=== PATIENT | female | born 1935 | race Caucasian/White ===

== ENCOUNTER 2016-09-07 13:06 | Inpatient (IN) ==
--- NOTE | 2016-09-07 14:47 | PROVIDER DOCUMENTATION ---
HPI-General Adult - General Chief Complaint: Altered Mental Status Stated Complaint: uti Time Seen by Provider: 09/07/16 14:31 Source: patient Allergies/Adverse Reactions: Patient Allergies Allergy/AdvReac Type Severity Reaction Status Date / Time No Known Allergies Allergy Verified 09/07/16 14:57 Home Medications: Home Medication List Medication Instructions Recorded Confirmed Last Taken Type Escitalopram [Lexapro] 10 mg PO DAILY 05/30/13 09/07/16 09/06/16 17:30 History Memantine HCl [Namenda Xr] 28 mg PO DAILY 04/08/15 09/07/16 09/07/16 10:00 History ATORVAstatin [Lipitor] 10 mg PO QHS 07/27/15 09/07/16 09/06/16 17:30 History Amiodarone [Cordarone] 200 mg PO DAILY 07/27/15 09/07/16 09/07/16 10:00 History Omeprazole [Prilosec] 20 mg PO DAILY@0700 09/14/15 09/07/16 09/06/16 17:30 History Amlodipine [Norvasc] 5 mg PO DAILY #0 tablet 09/20/15 09/07/16 09/07/16 10:00 Rx Donepezil [Aricept] 10 mg PO DAILY #0 tablet 09/20/15 09/07/16 09/07/16 10:00 Rx Metoprolol Succinate E.r. [Toprol 50 mg PO DAILY #0 09/20/15 09/07/16 09/06/16 17:30 Rx Xl] Insulin Glargine [Lantus] 46 unit SUBQ QHS 11/23/15 09/07/16 09/06/16 17:30 History Levothyroxine [Synthroid] 25 microgm PO DAILY 04/11/16 09/07/16 09/07/16 10:00 History Magnesium Oxide [Mag-Ox] 400 mg PO DAILY 04/11/16 09/07/16 04/11/16 History Sulfamethoxazole/Trimethoprim 1 mg PO BID 09/07/16 09/07/16 09/07/16 10:00 History [Sulfamethoxazole-Tmp Ds Tablet] - History of Present Illness -Gen Adult Nature of Presenting Problems: 81 y/o WF presenting with family for altered mental status. She does have a baseline dementia, but is typically alert and oriented to person, place and time. She was diagnosed with a uti yesterday (collection on Saturday at PCP) and was started on antibiotics, with one does yesterday and one dose today. They are unsure of the medication. Reports fevers. Patient is oriented to person, birthday and family. She cannot tell me where she is, or who the president is. Torie noticed the decline today. Has not been able to ambulate as easily today or answer their questions appropriately. They've witnessed her having chills. Review of Systems - Adult - REVIEW OF SYSTEMS - ADULT ROS:: limited per condition Constitutional: reports: see HPI, chills, fever, fatique Eyes: reports: no symptoms reported. denies: decreased vision, blurred vision, double vision, eye pain Ears, Nose, Mouth & Throat: reports: no symptoms reported. denies: ear pain, nose pain, throat pain Cardiovascular: reports: no symptoms reported. denies: chest pain, irregular heart rate, palpitations Respiratory: reports: no symptoms reported. denies: cough, shortness of breath , wheezing Gastrointestinal: reports: no symptoms reported. denies: abdominal pain, diarrhea, nausea, vomiting Genitourinary: reports: see HPI, dysuria. denies: discharge, frequency, flank pain, incontinence, urgency Musculoskeletal: reports: no symptoms reported. denies: bone pain, back pain, muscle aches Integumentary: reports: no symptoms reported. denies: rash Neurological: reports: no symptoms reported. denies: dizziness/vertigo, headache/migraines Psychiatric: reports: no symptoms reported Endocrine: reports: no symptoms reported Hematologic/Lymphatic: reports: no symptoms reported Allergic/Immunologic: reports: no symptoms reported All Other Systems: Reviewed and Negative Past History - Adult - PAST MEDICAL HISTORY-ADULT Review of Records: reports: Old Records Reviewed, Nursing Assessment Review, Medications Reviewed Major Childhood Illnesses: reports: denies history Cardiovascular: reports: HTN, hyperlipidemia Respiratory: reports: denies history Gastrointestinal: reports: GERD Obstetrical/Gynecological: reports: denies history Genitourinary: reports: denies history Musculoskeletal: reports: arthritis Neurological: reports: Alzheimer's, dementia Psychiatric: reports: denies history Endocrine/Immune: reports: Diabetes Other Conditions: reports: denies history - PRIOR SURGERIES/PROCEDURES Surgical/Procedure History: reports: reviewed, not pertinent - PRIOR HOSPITALIZATIONS Prior Hospitalizations: reports: for other non-related - IMMUNIZATION STATUS Childhood Immunizations: See Nurse Assessment Flu Vaccine: NUTD - FAMILY HISTORY Family History: reviewed, not pertinent Physical Exam-General - PHYSICAL EXAM-ADULT Initial Vital Signs Reviewed: Yes - CONSTITUTIONAL General Appearance: appears well, alert - EYES Eyes: PERRL/EOMI, pale conjunctivae - HEAD, EARS, NOSE, MOUTH & THROAT HENMT: normocephalic/atraumatic, moist mucous membranes - NECK Neck: non-tender, full range of motion, supple, normal inspection - RESPIRATORY Respiratory: chest non-tender, lungs clear, normal breath sounds, no pleuratic chest pain, no respiratory distress, no accessory muscle use. negative: respiratory distress, decreased breath sounds, accessory muscle use, crackles, rales, rhonchi, wheezing - CARDIOVASCULAR Cardiovascular: normal peripheral pulses, regular rate, rhythm. negative: tachycardia - GASTROINTESTINAL (ABDOMEN) Abdominal Exam: normal bowel sounds, non tender, soft, no organomegaly, abdominal bruit. negative: abnormal bowel sounds, distended, guarding, rigid, rebound, tenderness - MUSCULOSKELETAL Extremity: normal range of motion, other (left lower extremity in cast) - SKIN Integumentary: normal color, normal turgor, warm/dry - PSYCHIATRIC Psych/Mental Status: other (oriented x 1 to person) Progress - PLAN OF CARE/RESULTS Progress/Plan/Lab Results: Vital Signs - 8 hr 09/07/16 13:08 Temperature 99.7 F H Pulse Rate 76 Respiratory Rate 16 Blood Pressure 121/61 O2 Sat by Pulse Oximetry 96 Orders Category Date Time Status Cardiac Monitoring DIRECTED Care 09/07/16 14:35 Active Finger Stick Blood Sugar (ED) DIRECTED Care 09/07/16 14:35 Active Oxygen Therapy- ED Nursing DIRECTED Care 09/07/16 14:35 Active Saline Loc NOW Care 09/07/16 14:35 Active CHEST-PORTABLE [RAD] Stat Exams 09/07/16 14:35 Ordered ABG [RESP] Routine Lab 09/07/16 14:35 Ordered ALCOHOL BLOOD Stat Lab 09/07/16 14:35 Uncollected CBC WITH ELECTRONIC DIFF [HEME] Stat Lab 09/07/16 14:35 Uncollected CK PROFILE [SP CHEM] Stat Lab 09/07/16 14:35 Uncollected COMPREHENSIVE METABOLIC PANEL [CHEM] Stat Lab 09/07/16 14:35 Uncollected LACTATE, PLASMA [CHEM] Stat Lab 09/07/16 14:35 Uncollected PROTIME WITH INR [COAG] Stat Lab 09/07/16 14:35 Uncollected PTT [COAG] Stat Lab 09/07/16 14:35 Uncollected TROPONIN T Stat Lab 09/07/16 14:35 Uncollected URINALYSIS W/POSS RFLX CULT-1 [URINALYSIS] Stat Lab 09/07/16 14:35 Uncollected URINE DRUG SCREEN Stat Lab 09/07/16 14:35 Uncollected Pulse Oximetry Stat Oth 09/07/16 14:35 Active EKG [EKG] Stat Ther 09/07/16 14:35 Ordered Laboratory Tests 09/07/16 09/07/16 09/07/16 14:55 15:13 15:13 WBC 11.54 H RBC 4.74 Hgb 11.0 L Hct 35.1 L MCV 74.1 L MCH 23.2 L MCHC 31.3 L RDW Std Deviation 17.0 H Plt Count 269 MPV 10.4 Immature Gran % (Auto) 0.4 Neut % (Auto) 95.5 H Lymph % (Auto) 2.2 L [place] % (Auto) 1.8 Eos % (Auto) 0.0 Baso % (Auto) 0.1 Immature Gran # (Auto) 0.05 H Neut # (Auto) 11.02 H Lymph # (Auto) 0.25 L [place] # (Auto) 0.21 Eos # (Auto) 0.00 Baso # (Auto) 0.01 PT INR PTT (Actin FS) Specimen Type ARTERIAL Sample Site L RADIAL pH 7.48 H pCO2 31 L pO2 49 L* HCO3 24.9 Base Excess 0.2 Oxyhemoglobin 89.0 L* ABG O2 Sat (Calculated) 14.1 L ABG O2 Saturation 92.5 L ABG Carboxyhemoglobin 2.00 ABG Methemoglobin 1.8 H A-a O2 Difference 62.0 Total Hemoglobin 11.3 L Lactate 2.60 H Blood Gas Modality ROOM AIR FiO2 % 21.0 Sodium Potassium Chloride Carbon Dioxide Anion Gap BUN Creatinine Estimated GFR/1.73 m2 BUN/Creatinine Ratio Glucose Calculated Osmolality Calcium Total Bilirubin AST ALT Alkaline Phosphatase Creatine Kinase Troponin T Total Protein Albumin Globulin Albumin/Globulin Ratio Plasma Lactate Urine Source Urine Color Urine Turbidity Urine pH Ur Specific [place] Urine Protein Ur Glucose (Stick) Ur Ketones (Stick) Urine Blood Urine Nitrite Urine Bilirubin Urobilinogen Dipstick Urine Leukocytes Urine WBC (Auto) Urine RBC (Auto) U Epithel Cells (Auto) Urine Bacteria (Auto) Urine Opiates Screen Ur Oxycodone Screen Ur Methadone, Qual Ur Barbiturates Screen Ur Phencyclidine Scrn Ur Amphetamines Screen U Benzodiazepines Scrn Urine Cocaine Screen U Cannabinoids Screen Plasma/Serum Ethyl Alc 09/07/16 09/07/16 09/07/16 15:13 15:13 15:13 WBC RBC Hgb Hct MCV MCH MCHC RDW Std Deviation Plt Count MPV Immature Gran % (Auto) Neut % (Auto) Lymph % (Auto) [place] % (Auto) Eos % (Auto) Baso % (Auto) Immature Gran # (Auto) Neut # (Auto) Lymph # (Auto) [place] # (Auto) Eos # (Auto) Baso # (Auto) PT 10.6 INR 1.01 PTT (Actin FS) 26.0 Specimen Type Sample Site pH pCO2 pO2 HCO3 Base Excess Oxyhemoglobin ABG O2 Sat (Calculated) ABG O2 Saturation ABG Carboxyhemoglobin ABG Methemoglobin A-a O2 Difference Total Hemoglobin Lactate Blood Gas Modality FiO2 % Sodium 134 L Potassium 4.3 Chloride 93 L Carbon Dioxide 23 L Anion Gap 18 BUN 19 Creatinine 1.3 H Estimated GFR/1.73 m2 39 BUN/Creatinine Ratio 15 Glucose 244 H Calculated Osmolality 279 Calcium 9.2 Total Bilirubin 0.50 AST 186 H ALT 88 H Alkaline Phosphatase 221 H Creatine Kinase 28 Troponin T Total Protein 7.3 Albumin 3.5 Globulin 3.8 Albumin/Globulin Ratio 0.9 Plasma Lactate 3.3 H Urine Source Urine Color Urine Turbidity Urine pH Ur Specific [place] Urine Protein Ur Glucose (Stick) Ur Ketones (Stick) Urine Blood Urine Nitrite Urine Bilirubin Urobilinogen Dipstick Urine Leukocytes Urine WBC (Auto) Urine RBC (Auto) U Epithel Cells (Auto) Urine Bacteria (Auto) Urine Opiates Screen Ur Oxycodone Screen Ur Methadone, Qual Ur Barbiturates Screen Ur Phencyclidine Scrn Ur Amphetamines Screen U Benzodiazepines Scrn Urine Cocaine Screen U Cannabinoids Screen Plasma/Serum Ethyl Alc 09/07/16 09/07/16 09/07/16 15:13 15:58 15:58 WBC RBC Hgb Hct MCV MCH MCHC RDW Std Deviation Plt Count MPV Immature Gran % (Auto) Neut % (Auto) Lymph % (Auto) [place] % (Auto) Eos % (Auto) Baso % (Auto) Immature Gran # (Auto) Neut # (Auto) Lymph # (Auto) [place] # (Auto) Eos # (Auto) Baso # (Auto) PT INR PTT (Actin FS) Specimen Type Sample Site pH pCO2 pO2 HCO3 Base Excess Oxyhemoglobin ABG O2 Sat (Calculated) ABG O2 Saturation ABG Carboxyhemoglobin ABG Methemoglobin A-a O2 Difference Total Hemoglobin Lactate Blood Gas Modality FiO2 % Sodium Potassium Chloride Carbon Dioxide Anion Gap BUN Creatinine Estimated GFR/1.73 m2 BUN/Creatinine Ratio Glucose Calculated Osmolality Calcium Total Bilirubin AST ALT Alkaline Phosphatase Creatine Kinase Troponin T < 0.010 Total Protein Albumin Globulin Albumin/Globulin Ratio Plasma Lactate Urine Source CATH Urine Color ORANGE Urine Turbidity HAZY Urine pH 5.5 Ur Specific [place] 1.015 Urine Protein 70 A Ur Glucose (Stick) 150 A Ur Ketones (Stick) NEGATIVE Urine Blood LARGE A Urine Nitrite NEGATIVE Urine Bilirubin NEGATIVE Urobilinogen Dipstick NORMAL Urine Leukocytes NEGATIVE Urine WBC (Auto) <10 Urine RBC (Auto) TNTC A U Epithel Cells (Auto) <10 Urine Bacteria (Auto) NEGATIVE Urine Opiates Screen NONE DETECTED Ur Oxycodone Screen NONE DETECTED Ur Methadone, Qual NONE DETECTED Ur Barbiturates Screen NONE DETECTED Ur Phencyclidine Scrn NONE DETECTED Ur Amphetamines Screen NONE DETECTED U Benzodiazepines Scrn NONE DETECTED Urine Cocaine Screen NONE DETECTED U Cannabinoids Screen NONE DETECTED Plasma/Serum Ethyl Alc Result Diagrams: 09/07/16 15:13 09/07/16 15:13 - XRAY 1 XRAY: Bilateral XRAY Study: Chest Impression: Normal (poor inspiration. ill defined left jose david-hilar atelectasis per Dr. Reyes, radiology) - CONSULTS/PCP/HOSPITALIST Notification #1 *Consult/PCP/Hospitalist*: Dr. Bryan, PCP Time Discussed: 16:42 Reason/Comments: Left sided atelectasis, sepsis Consult Disposition: Admit Departure - Departure Time of Disposition Decision: 16:42 DIAGNOSIS: Atelectasis of left lung Sepsis Qualifiers: Sepsis type: sepsis due to unspecified organism Qualified Code(s): A41.9 - Sepsis, unspecified organism Disposition: ADMITTED INPATIENT 09 Certified Medical Emergency: Emergent Condition: Stable - Critical Care Note This patient required my direct & personal management of CC.: No Attestation - Physician/ ANA Attestation Patient care was provided by Advanced Practice Provider:: Yes Advanced Practice Provider:: Kerry Hughes Advanced Practice Provider documentation review:: The Mid-level provider documentation, treatment plan and medical decision making was reviewed by the physician who agrees with all treatment and medical decision making by the MLP.
[2016-09-07] MEDS ORDERED: TYLENOL PO ONE (15:03)
[2016-09-07 15:05] LABS: BE 0.2 mmoll (-3.0-3.0); BLOOD TYPE ARTERIAL; DRAW SITE L RADIAL; METHB 1.8 % (0.0-1.5); O2(CT) 14.1 mL/dL (15.0-23.0); PCO2(98.6) 31 mmHg (35-45); SAMPLE BLOOD; SAO2 92.5 % (95.0-100.0); THB 11.3 g/dL (11.5-17.4); pH(98.6) 7.48 (7.35-7.45)
[2016-09-07 15:10] LABS: MODALITY ROOM AIR
[2016-09-07 15:15] LABS: PO2(98.6) 49 mmHg (60-100)
[2016-09-07] MEDS ORDERED: ROCEPHIN 1 GM/NS 1 GM/50 ML IVPB IV ONE (15:21)
[2016-09-07] MEDS ORDERED: NS 1,000 ML IV ONE ×2 (15:21→15:57)
[2016-09-07 15:57] LABS: BASO% 0.1 % (0.0-0.8); HEMATOCRIT 35.1 % (37.0-47.0); IMM GRAN# 0.05 X1000 (0.0-0.04); IMM GRAN% 0.4 % (0.0-0.5); LYMPH# 0.25 X1000 (1.2-3.4); LYMPH% 2.2 % (20.5-51.1); MANUAL DIFF NEEDED? NO; MCH 23.2 PG (27-31); MCHC 31.3 g/dL (33-37); MCV 74.1 FL (81-99); MONO# 0.21 X1000 (0.11-0.59); MONO% 1.8 % (1.7-9.3); MPV 10.4 FL (7.4-10.4); NEUT% 95.5 % (42.2-75.2); PLT 269 X1000 (130-400); RBC 4.74 XMIL (4.2-5.4)
[2016-09-07 16:02] LABS: INR 1.01; PROTIME 10.6 Seconds (9.2-11.7)
[2016-09-07] MEDS ORDERED: LEVAQUIN 750 MG in NS 150 ML IV ONE (16:05)
[2016-09-07 16:16] LABS: URINE CULTURE NEEDED? NO; URINE MICRO REVIEW NEEDED? NO; URINE SOURCE CATH
[2016-09-07 16:20] LABS: BILIRUBIN URINE NEGATIVE (NEGATIVE); BLOOD URINE LARGE (NEGATIVE); COLOR ORANGE; GLUCOSE URINE 150 mg/dL (NEGATIVE); LEUKOCYTES URINE NEGATIVE (NEGATIVE); NITRITE URINE NEGATIVE (NEGATIVE); PH URINE 5.5; PROTEIN URINE 70 mg/dL (NEGATIVE); SP GRAVITY URINE 1.015; TURBIDITY URINE HAZY (CLEAR); UROBILINOGEN URINE NORMAL (NORMAL)
[2016-09-07 16:22] LABS: ALBUMIN 3.5 g/dL (3.5-5.0); CALCIUM 9.2 mg/dL (8.8-10.2); POTASSIUM 4.3 mmol/L (3.5-5.1); TOTAL BILIRUBIN 0.5 mg/dL (0.20-1.00); TOTAL PROTEIN 7.3 g/dL (6.3-8.3)
[2016-09-07 16:24] LABS: UR EPITHELIAL CELLS <10 /HPF (<10); URINE BACTERIA NEGATIVE /HPF; URINE RBC TNTC /HPF (<10); URINE WBC <10 /HPF (<10)
[2016-09-07 16:29] LABS: UR AMPHETAMINES QUAL NONE DETECTED (NONE DETECT); UR BARBITUATES QUAL NONE DETECTED (NONE DETECT); UR BENZODIAZEPIN QUAL NONE DETECTED (NONE DETECT); UR CANNABINOIDS QUAL NONE DETECTED (NONE DETECT); UR COCAINE QUAL NONE DETECTED (NONE DETECT); UR METHADONE QUAL NONE DETECTED (NONE DETECT); UR OPIATES QUAL NONE DETECTED (NONE DETECT); UR OXYCODONE QUAL NONE DETECTED (NONE DETECT); UR PCP QUAL NONE DETECTED (NONE DETECT)
--- NOTE | 2016-09-07 17:13 | Diag Imaging Result Document ---
PROCEDURE NAME: CHEST-PORTABLE - 09/07/2016 PORTABLE CHEST: FINDINGS: Heart size appears within normal limits. Inspiration is somewhat shallow. There is ill-defined perihilar infiltrate or atelectasis on the left. There is no other dense consolidation, substantial pleural effusion, or pneumothorax identified. IMPRESSION: 1. Shallow inspiration. 2. Ill-defined perihilar infiltrate or atelectasis on the left.
[2016-09-07] MEDS ORDERED: MAGNESIUM SULFATE 2 GM/S.W.I. 2 GM/50 ML IVPB IV ONE (18:35)
--- NOTE | 2016-09-07 19:29 | HISTORY AND PHYSICAL ---
CHIEF COMPLAINT: Altered mental status. HISTORY OF PRESENT ILLNESS: 81-year-old white female patient not doing well since this morning. According to patient was coughing, chest congestion, more short of breath. The patient had underlying dementia. The patient was more confused and disoriented. According to patient was incoherent, not communicating well. thought patient will get better. He waited till morning. I evaluated patient few days ago. She had vague UTI. [place] count in the urine was around 20,000 to 40,000 in the culture. Considering her underlying diabetes I started patient on Bactrim DS which they started 1st dose yesterday. Patient did have some chills. No documented fever. The patient had some nausea. She was very weak and lethargic. The patient was brought to the emergency room. Workup in the ER patient found to be hypoxemic. Her lactate level was high. Chest x-ray did reveal possible perihilar infiltrate suggestive of pneumonia. ER physician entertained possibility of sepsis. She was given fluid. They did septic workup. The patient was started on IV antibiotics. Patient responded well. Her mental status improved. When I evaluated the patient she was more alert, awake and communicating. No history of fall or head injury. She denied any chest pain. She did have some nausea but no vomiting. No typical chest pain or palpitation. Her shortness of breath was better. The patient was on oxygen. She denied any abdominal pain. No diarrhea, blood, or mucus in the stool. No dysuria or hematuria. The patient had uterine prolapse. Patient has stent in the ureter. The patient had fracture of the left tibia. Patient has cast under care of orthopedic surgeon. The patient does have advanced dementia. History part is limited. No further history available at this time. ALLERGIES: No known drug allergy. HOME MEDICATION: Includes I recently started her on magnesium oxide, patient is on Prilosec, I started her on Bactrim DS yesterday, amiodarone, Norvasc, Lipitor, Aricept, Namenda, Lexapro, Lantus, Synthroid, beta nneka, Toprol-XL. PAST MEDICAL HISTORY: Hypertension, hyperlipidemia, insulin-dependent diabetes mellitus, dementia, left tibia fracture, hypothyroidism, uterine prolapse, recurrent UTI, hypomagnesemia, osteoarthritis, obstructive uropathy. The patient has a stent in both the ureters. PERSONAL HISTORY: , lives with the . Nonsmoker. Denied alcohol or substance abuse. Needs minimal assistance in activities of daily living. REVIEW OF SYSTEMS: As per HPI. FAMILY HISTORY: Noncontributory. PHYSICAL EXAMINATION: GENERAL: Elderly white female patient in mild distress. VITAL SIGNS: Her temperature was 99.7 degrees, pulse 76, respirations 16, blood pressure 121/61. SKIN: Senile turgor. HEENT: Head atraumatic, normocephalic. [place] conjunctivae. Anicteric sclerae. Extraocular muscle movement normal. Fundus cannot be penetrated. Good oral hygiene. No tonsillopharyngeal congestion or exudate. Ears and nose benign. NECK: Supple. No JVD, thyromegaly or lymphadenopathy. CHEST: Bilateral good air entry present. Bibasilar crepitation. No rales. CARDIOVASCULAR: S1 and S2 heard. No gallop or thrill. ABDOMEN: Soft, globular. Bowel sounds present. No organomegaly or mass. EXTREMITIES: No cyanosis, clubbing. No acute DVT. Right leg. Patient has cast on the left lower leg. HUMAN INSIGHTS LEAD ADS MARKETING: Alert, awake, able to move all 4 limbs. Uncooperative for detailed exam. LAB DATA: The patient does have leukocytosis with left shift. WBC count 11.54, hemoglobin 11, hematocrit 35.1, platelet count 269,000. PT and PTT were normal. Blood gas, pH 7.48, pCO2 31, PO2 was 49. The patient was hypoxemic on room air. Electrolytes fairly benign. BUN 19, creatinine 1.3. AST was 186, ALT was 88, alkaline phosphatase 221. Urinalysis did reveal large blood, too numerous to count RBCs, this was a catheter specimen. Urine drug screen was negative. Chest x-ray did reveal perihilar infiltrate. CONSIDERATION: Patient admitted with sepsis most likely due to pneumonia. The patient has hypoxemia, advanced dementia, diabetes mellitus on insulin, hypomagnesemia, history of hypertension. PLAN: Admit the patient. IV antibiotics. IV hydration. GI and DVT prophylaxis. Overall plan discussed at length with the patient's and he is in agreement. cc: Tan Bryan MD
[2016-09-07] MEDS: POTASSIUM CHLORIDE 10 MEQ in NS 1,000 ML IV SCH (19:52)
[2016-09-07] MEDS: PROTONIX IV SCH (20:36)
[2016-09-07] MEDS: LANTUS SUBQ SCH (20:36)
[2016-09-07] MEDS: LOVENOX SUBQ SCH (20:36)
[2016-09-07] MEDS: HUMALOG SUBQ SCH (20:37)
[2016-09-07] MEDS ORDERED: LIPITOR PO SCH (21:00)
[2016-09-07] MEDS: DUONEB (A & A) INH SCH (21:06)
[2016-09-08] MEDS: DUONEB (A & A) INH SCH ×4 (03:34→21:22)
[2016-09-08] MEDS: HUMALOG SUBQ SCH ×4 (06:11→22:22)
[2016-09-08 06:41] LABS: BASO% 0.2 % (0.0-0.8); EOS# 0.01 X1000 (0.0-0.7); EOS% 0.2 % (0.0-10.0); HEMATOCRIT 30.6 % (37.0-47.0); HEMOGLOBIN 9.6 g/dL (12.0-16.0); IMM GRAN# 0.04 X1000 (0.0-0.04); IMM GRAN% 0.7 % (0.0-0.5); LYMPH# 0.37 X1000 (1.2-3.4); LYMPH% 6.1 % (20.5-51.1); MANUAL DIFF NEEDED? YES; MCH 23.4 PG (27-31); MCHC 31.4 g/dL (33-37); MCV 74.5 FL (81-99); MONO# 0.25 X1000 (0.11-0.59); MONO% 4.1 % (1.7-9.3); MPV 10.1 FL (7.4-10.4); NEUT% 88.7 % (42.2-75.2); PLT 208 X1000 (130-400); RBC 4.11 XMIL (4.2-5.4)
[2016-09-08 06:53] LABS: LYMPHS 2 % (21-51); MONO 2 % (1-9)
[2016-09-08 06:59] LABS: ALBUMIN 2.9 g/dL (3.5-5.0); CALCIUM 8.1 mg/dL (8.8-10.2); POTASSIUM 4.1 mmol/L (3.5-5.1); TOTAL BILIRUBIN 0.6 mg/dL (0.20-1.00)
--- NOTE | 2016-09-08 08:50 | Diag Imaging Result Document ---
PROCEDURE NAME: CHEST-PORTABLE - 09/08/2016 SINGLE FRONTAL RADIOGRAPH OF THE CHEST: COMPARISON: 09/07/2016. FINDINGS: Inspiration is suboptimal. Ill-defined atelectasis and/or infiltrate in the left perihilar region is stable to marginally improved. No new consolidation is identified. Cardiac silhouette is stable. IMPRESSION: [id number] improvement of atelectasis and/or infiltrate in the left perihilar region.
[2016-09-08] MEDS: ARICEPT PO SCH (09:11)
[2016-09-08] MEDS: TOPROL XL PO SCH (09:11)
[2016-09-08] MEDS: SYNTHROID PO SCH (09:11)
[2016-09-08] MEDS: NORVASC PO SCH (09:12)
[2016-09-08] MEDS: LEXAPRO PO SCH (09:12)
[2016-09-08] MEDS: NAMENDA XR PO SCH (09:12)
[2016-09-08] MEDS: CORDARONE PO SCH (09:12)
[2016-09-08] MEDS: POTASSIUM CHLORIDE 10 MEQ in NS 1,000 ML IV SCH (09:13)
[2016-09-08] MEDS ORDERED: LASIX IV ONE ×2 (10:09→15:15)
--- NOTE | 2016-09-08 11:29 | PROGRESS NOTE ---
DATE: 09/08/2016 SUBJECTIVE: Ms Gil is doing fair. She denied any nausea. Oral intake is fair. The patient had low-grade fever up to 100.6, mild cough and chest congestion, complaining of chest soreness when she coughs. No diarrhea. No typical chest pain. The patient has a prolapsed uterus. No unusual agitation. The patient has a cast on her left leg. When she came in, the patient was hypoxemic. OBJECTIVE: Her vital signs reviewed. Neck is supple. No JVD. Lungs: Bibasilar crepitations. Occasional wheezing. Heart: S1 and S2 heard. Abdomen soft, globular. Bowel sounds present. Extremities: No cyanosis, clubbing. No acute DVT. Difficult to DVT in the left leg because of the cast. CLINICAL INFORMATICS DIRECTOR: Alert, awake, able to move all 4 limbs. LABORATORY DATA: Today, hemoglobin 9.6, hematocrit 30.6, WBC count 6.05, platelet count was 208,000. Electrolytes: BUN 27, creatinine 1.6. Her ProBNP was 2332. Her LFT was deteriorating. PATIENT'S PROBLEMS: 1. Pneumonia. The patient was hypoxemic. She is high risk for deep venous thrombosis and pulmonary embolism. I am going to get V/Q scan for further evaluation. Considering her poor renal function, she will not qualify for CTA of the pulmonary artery. 2. Abnormal LFT. I stopped her Lipitor. I am going to get a CT scan of the abdomen and pelvis. 3. Dementia. 4. Diabetes mellitus. The patient is on small dose of Lantus and sliding scale insulin, which will continue. 5. Fracture of the left tibia. The patient has on a cast. Overall, the patient is doing fair. We will repeat blood work tomorrow. Overall plan discussed with the family and they are in agreement. cc: Tan Bryan MD
--- NOTE | 2016-09-08 11:32 | Diag Imaging Result Document ---
PROCEDURE NAME: ABDOMEN/PELVIS W/O CONTRAST - 09/08/2016 CT ABDOMEN AND PELVIS WITHOUT CONTRAST: COMPARISON: 09/14/2015. FINDINGS: There is atelectasis and/or scarring at the lung bases. There is a calcified granuloma in the lingula. There are calcified granulomata in the liver and the spleen. There is a stable small hiatal hernia. There has been a previous cholecystectomy. The pancreas is very atrophic but stable. Bilateral ureteral stents are in stable positions. The right and left renal collecting systems are still mildly dilated but they are similar to the previous study. Similar to the previous study, there is stranding around the renal pelvises and the ureters. The urinary bladder wall appears somewhat thickened. At least in part, this is due to incomplete distention; however, there is stranding around the urinary bladder. Correlate clinically to exclude urinary tract infection. There is uncomplicated diverticulosis coli, mainly involving the sigmoid colon. There is no bowel obstruction. There are shotty mesenteric lymph nodes with surrounding haziness. This is stable and is nonspecific but is often associated with mesenteric panniculitis. There is stable aortoiliac atherosclerotic calcification. The remainder of the solid viscera of the abdomen and pelvis and the remainder of the GI tract is essentially unremarkable. No free abdominal gas or significant free fluid is appreciated. IMPRESSION: 1. Bilateral ureteral stents in stable position but with stranding around the renal pelvises and ureters bilaterally. This is similar to the previous study; however, there now appears to be more urinary bladder wall thickening and stranding around the bladder. Correlate clinically to exclude UTI. 2. No evidence of biliary dilatation. 3. Other incidental/nonacute findings detailed above that are essentially stable.
--- NOTE | 2016-09-08 14:19 | Diag Imaging Result Document ---
PROCEDURE NAME: LUNG SCAN / VQ - 09/08/2016 NUCLEAR MEDICINE V/Q SCAN: COMPARISON: No prior V/Q scan is available for comparison. FINDINGS: 34.6 mCi of technetium-99m DTPA was administered for the ventilation portion of the study. 5.4 mCi of IV technetium-99m MAA was administered for the perfusion portion of the study. On the ventilation portion of the study, there is a large amount of condensed radiotracer in the trachea and central bronchi. This can limit the ventilation portion of the study. There appear to be a few small subsegmental perfusion defects in the left lung; however, they appear to be matched on the ventilation portion of the scan. No segmental or unmatched perfusion defect can be identified. IMPRESSION: Low probability of pulmonary embolism.
[2016-09-08] MEDS: LOVENOX SUBQ SCH (22:22)
[2016-09-08] MEDS: SODIUM CHLORIDE 0.9% INJ SCH (22:22)
[2016-09-08] MEDS: PROTONIX IV SCH (22:22)
[2016-09-08] MEDS: TYLENOL PO PRN (22:22)
[2016-09-08] MEDS: LANTUS SUBQ SCH (22:23)
[2016-09-08] MEDS: MAXIPIME 1 GM/NS 1 GM/50 ML IVPB IV SCH (23:16)
[2016-09-09] MEDS: DUONEB (A & A) INH SCH ×4 (03:54→22:42)
[2016-09-09] MEDS: HUMALOG SUBQ SCH ×4 (06:09→20:34)
[2016-09-09 07:20] LABS: ALBUMIN 2.7 g/dL (3.5-5.0); CALCIUM 8.6 mg/dL (8.8-10.2); POTASSIUM 3.8 mmol/L (3.5-5.1); TOTAL BILIRUBIN 0.81 mg/dL (0.20-1.00); TOTAL PROTEIN 5.9 g/dL (6.3-8.3)
--- NOTE | 2016-09-09 07:29 | PROGRESS NOTE ---
DATE: 09/09/2016 SUBJECTIVE: Ms. Gil is doing fair. The patient is more alert and awake today. The patient spiked temperature up to 102 degrees yesterday. We gave her some Tylenol. I put her on Maxipime. The patient is tolerating antibiotics well. The patient is vague and poor historian. No typical chest pain or palpitations. She denied any diarrhea. Oral intake is fair. The patient admitted with altered mental status, possible sepsis. Found to have pneumonia. The patient had elevated D- dimer. I did a V/Q scan which was low probability. Her CT scan of the abdomen and pelvis, results noted. OBJECTIVE: Vital Signs: Vital signs noted. Neck: Supple. No jugular venous distention. Lungs: Bibasilar crepitations. Cardiovascular: S1 and S2 heard. Abdomen: Soft, globular. Bowel sounds present. Patient does have umbilical hernia. Extremities: No cyanosis or clubbing. Patient does have cast on the left leg. SPECIFICATION MANAGER: Alert, awake, able to move all 4 limbs. CONSIDERATION: 1. Possible pneumonitis, on Maxipime. Will continue bronchodilator treatment. The patient did have abnormal liver function tests. CT scan of the abdomen and pelvis did not reveal any biliary dilatation. 2. Diabetes mellitus. We are monitoring Accu-Chek. The patient is on sliding scale insulin plus basal insulin. Will continue. 3. Advanced dementia. 4. History suggestive of urinary tract infection. 5. Cystitis as seen on CT scan. OTHER PROBLEMS: Uncomplicated diverticulosis, mainly of the sigmoid colon. I am going to check today's electrolytes. Continue current treatment. We will get physical therapy evaluation. PLAN: Overall plan discussed with the patient. Family members were not present. cc: Tan Bryan MD
[2016-09-09] MEDS: CORDARONE PO SCH (08:06)
[2016-09-09] MEDS: NAMENDA XR PO SCH (08:07)
[2016-09-09] MEDS: SYNTHROID PO SCH (08:08)
[2016-09-09] MEDS: LEXAPRO PO SCH (08:09)
[2016-09-09] MEDS: NORVASC PO SCH (08:09)
[2016-09-09] MEDS: ARICEPT PO SCH (08:09)
[2016-09-09] MEDS: TOPROL XL PO SCH (08:09)
[2016-09-09] MEDS: POTASSIUM CHLORIDE 10 MEQ in NS 1,000 ML IV SCH (08:10)
[2016-09-09] MEDS: MAXIPIME 1 GM/NS 1 GM/50 ML IVPB IV SCH (08:10)
[2016-09-09] MEDS ORDERED: INSULIN PEN NEEDLES ONE (16:11)
[2016-09-09] MEDS: TYLENOL PO PRN (17:07)
[2016-09-09] MEDS: LOVENOX SUBQ SCH (20:34)
[2016-09-09] MEDS: LANTUS SUBQ SCH (20:35)
[2016-09-10] MEDS: SODIUM CHLORIDE 0.9% INJ SCH ×2 (00:14→20:31)
[2016-09-10] MEDS: PROTONIX IV SCH ×2 (00:14→20:31)
[2016-09-10] MEDS: MAXIPIME 1 GM/NS 1 GM/50 ML IVPB IV SCH ×3 (00:14→20:31)
[2016-09-10] MEDS: DUONEB (A & A) INH SCH ×4 (03:34→22:44)
[2016-09-10] MEDS: HUMALOG SUBQ SCH ×4 (06:01→20:32)
--- NOTE | 2016-09-10 06:28 | EKG Report ---
Test Performed on : 09/07/2016 5:36:44 PM Test Reason : AMS Blood Pressure : / mmHG Vent. Rate : 070 BPM Atrial Rate : 070 BPM P-R Int : 162 ms QRS Dur : 080 ms QT Int : 454 ms P-R-T Axes : 053 034 065 degrees QTc Int : 490 ms Normal sinus rhythm. Nonspecific T wave abnormality Abnormal ECG When compared with ECG of 10-NOV-2015 14:54, Nonspecific T wave abnormality now evident in Lateral leads Unconfirmed Result
[2016-09-10 06:41] LABS: BASO% 0.8 % (0.0-0.8); EOS# 0.26 X1000 (0.0-0.7); EOS% 6.6 % (0.0-10.0); HEMATOCRIT 30.6 % (37.0-47.0); HEMOGLOBIN 9.5 g/dL (12.0-16.0); IMM GRAN# 0.04 X1000 (0.0-0.04); LYMPH# 0.48 X1000 (1.2-3.4); LYMPH% 12.2 % (20.5-51.1); MANUAL DIFF NEEDED? NO; MCH 22.8 PG (27-31); MCV 73.6 FL (81-99); MONO# 0.47 X1000 (0.11-0.59); MPV 10.1 FL (7.4-10.4); NEUT% 67.4 % (42.2-75.2); PLT 203 X1000 (130-400); RBC 4.16 XMIL (4.2-5.4)
--- NOTE | 2016-09-10 06:45 | PROGRESS NOTE ---
DATE: 09/10/2016 SUBJECTIVE: Ms. Gil is feeling better. She did not have high-grade fever or chills. Chest congestion and cough improving. No nausea or vomiting. Oral intake is fair. Patient is getting treatment for pneumonia and possible UTI. PHYSICAL EXAMINATION: Vital Signs: Her vital signs noted. Patient is afebrile. Neck: Supple. No JVD. Lungs: Bilateral good air entry present. CVS: S1 and S2 heard. Abdomen: Soft, globular. Bowel sounds present. Extremities: Patient does have a cast on the left leg. LOGGING SUPERINTENDENT: Alert, awake. Able to move all 4 limbs. LABORATORY DATA: Patient's lab data are pending. ASSESSMENT AND PLAN: 1. Patient admitted with febrile illness, possible sepsis, most likely due to pneumonia. The patient is on Maxipen. Clinically improving, afebrile. I did her CBC on September 08 which was improving. I am going to recheck blood work today. Her liver function tests and electrolytes results reviewed. 2. The patient does have diabetes. Her blood sugar result noted. I am going to increase her Lantus insulin. The patient is on deep venous thrombosis prophylaxis. She is on sliding scale. 3. Hypertension. 4. Advanced dementia. 5. Osteoarthritis. 6. Patient does have uterine prolapse. 7. Left tibial fracture. 8. I am going to check morning labs. Continue current treatment and close observation. cc: Tan Bryan MD
[2016-09-10 06:57] LABS: ALBUMIN 2.8 g/dL (3.5-5.0); CALCIUM 8.6 mg/dL (8.8-10.2); TOTAL BILIRUBIN 0.59 mg/dL (0.20-1.00)
[2016-09-10] MEDS: ARICEPT PO SCH (09:06)
[2016-09-10] MEDS: POTASSIUM CHLORIDE 10 MEQ in NS 1,000 ML IV SCH (09:06)
[2016-09-10] MEDS: LEXAPRO PO SCH (09:06)
[2016-09-10] MEDS: TOPROL XL PO SCH (09:06)
[2016-09-10] MEDS: SYNTHROID PO SCH (09:07)
[2016-09-10] MEDS: NORVASC PO SCH (09:07)
[2016-09-10] MEDS: NAMENDA XR PO SCH (09:07)
[2016-09-10] MEDS: CORDARONE PO SCH (09:07)
--- NOTE | 2016-09-10 09:19 | Diag Imaging Result Document ---
PROCEDURE NAME: CHEST-PORTABLE - 09/10/2016 PORTABLE CHEST X-RAY, 09/10/2016: COMPARISON: 09/08/2016. FINDINGS: Stable cardiomegaly and pulmonary vascular congestion. Stable right hemidiaphragm elevation. No new infiltrates or edema. IMPRESSION: No significant change from prior.
[2016-09-10] MEDS: LANTUS SUBQ SCH (20:31)
[2016-09-10] MEDS: LOVENOX SUBQ SCH (20:31)
[2016-09-11] MEDS: DUONEB (A & A) INH SCH ×4 (03:10→22:45)
[2016-09-11] MEDS: HUMALOG SUBQ SCH ×4 (06:27→21:06)
--- NOTE | 2016-09-11 07:06 | PROGRESS NOTE ---
DATE: 09/11/2016 SUBJECTIVE: Ms. Gil is doing better. She is improving slowly. Chest congestion, cough, mental status are improving. Renal function is better. Oral intake is fair. The patient still has some confusion. No nausea or vomiting. OBJECTIVE: Vital Signs: Noted. Neck: Supple. No JVD. Lungs: Bilateral good air entry present. Cardiovascular: S1 and S2 heard. Abdomen: Soft, globular. Bowel sounds present. CONTACT LENS FITTER: Alert, awake. Able to move all 4 limbs. Lab Data: Done yesterday did show improvement in her LFT. Alkaline phosphatase is still elevated, could be due to her bone injury. CONSIDERATIONS: 1. Sepsis due to pneumonia. 2. Diabetes mellitus. 3. Gastritis. 4. Dementia. 5. Abnormal liver function tests, improving. PLAN: Overall, the patient is doing better. We will continue current treatment. Close observation. If clinical condition continues to improve, we will plan discharging patient home soon. cc: Tan Bryan MD
[2016-09-11] MEDS: SYNTHROID PO SCH (09:03)
[2016-09-11] MEDS: POTASSIUM CHLORIDE 10 MEQ in NS 1,000 ML IV SCH (09:03)
[2016-09-11] MEDS: TOPROL XL PO SCH (09:03)
[2016-09-11] MEDS: ARICEPT PO SCH (09:04)
[2016-09-11] MEDS: NORVASC PO SCH (09:04)
[2016-09-11] MEDS: CORDARONE PO SCH (09:04)
[2016-09-11] MEDS: NAMENDA XR PO SCH (09:04)
[2016-09-11] MEDS: LEXAPRO PO SCH (09:04)
[2016-09-11] MEDS: MAXIPIME 1 GM/NS 1 GM/50 ML IVPB IV SCH ×2 (09:04→21:04)
[2016-09-11] MEDS: LOVENOX SUBQ SCH (21:05)
[2016-09-11] MEDS: SODIUM CHLORIDE 0.9% INJ SCH (21:05)
[2016-09-11] MEDS: LANTUS SUBQ SCH (21:05)
[2016-09-11] MEDS: PROTONIX IV SCH (21:05)
[2016-09-12] MEDS: DUONEB (A & A) INH SCH ×4 (03:51→22:45)
[2016-09-12] MEDS: HUMALOG SUBQ SCH ×4 (06:10→22:01)
[2016-09-12] MEDS ORDERED: LANTUS SUBQ SCH (06:29)
--- NOTE | 2016-09-12 07:04 | PROGRESS NOTE ---
DATE: 09/12/2016 SUBJECTIVE: Ms. Gil is doing better. More alert and awake. No fever or chills. Mild cough. No expectoration. Oral intake variable. Patient is on IV antibiotics for possible pneumonia and UTI. The patient does have Lyn catheter. Blood sugar results reviewed. OBJECTIVE: Vital Signs: Noted. Lungs: Bilateral good air entry present. Few basal crepitations. Cardiovascular: S1 and S2 heard. Abdomen: Soft, globular. Bowel sounds present. CRUSHING MILL OPERATOR: Alert, awake able to move all 4 limbs. Patient does have dementia. LAB DATA: Done on September 10 reviewed. CONSIDERATION: 1. Sepsis, most likely due to pneumonia. 2. Urinary tract infection. 3. Pulmonary edema. 4. Dementia. 5. Diabetes mellitus. 6. Hypertension PLAN: Overall patient is doing better. I think patient will be benefited with continue IV antibiotics and physical therapy. I did discuss her condition and plan with the patient's on telephone yesterday and also with her granddaughter again yesterday afternoon. Discussed with them about the plan. We will continue current treatment. If clinical condition permits, I am planning to discharge her home tomorrow. cc: Tan Bryan MD
[2016-09-12] MEDS: MAXIPIME 1 GM/NS 1 GM/50 ML IVPB IV SCH ×2 (09:19→22:00)
[2016-09-12] MEDS: ARICEPT PO SCH (09:20)
[2016-09-12] MEDS: NAMENDA XR PO SCH (09:20)
[2016-09-12] MEDS: LEXAPRO PO SCH (09:20)
[2016-09-12] MEDS: SYNTHROID PO SCH (09:20)
[2016-09-12] MEDS: TOPROL XL PO SCH (09:20)
[2016-09-12] MEDS: CORDARONE PO SCH (09:20)
[2016-09-12] MEDS: NORVASC PO SCH (09:20)
[2016-09-12] MEDS: SODIUM CHLORIDE 0.9% INJ SCH (22:00)
[2016-09-12] MEDS: PROTONIX IV SCH (22:00)
[2016-09-12] MEDS: LOVENOX SUBQ SCH (22:01)
[2016-09-13] MEDS: DUONEB (A & A) INH SCH ×2 (03:05→09:28)
[2016-09-13 06:17] LABS: BASO% 0.8 % (0.0-0.8); EOS# 0.29 X1000 (0.0-0.7); EOS% 5.7 % (0.0-10.0); HEMATOCRIT 30.2 % (37.0-47.0); HEMOGLOBIN 9.5 g/dL (12.0-16.0); IMM GRAN# 0.19 X1000 (0.0-0.04); IMM GRAN% 3.7 % (0.0-0.5); LYMPH# 0.69 X1000 (1.2-3.4); LYMPH% 13.5 % (20.5-51.1); MANUAL DIFF NEEDED? YES; MCH 23.4 PG (27-31); MCHC 31.5 g/dL (33-37); MCV 74.4 FL (81-99); MONO% 11.7 % (1.7-9.3); MPV 9.9 FL (7.4-10.4); NEUT% 64.6 % (42.2-75.2); PLT 272 X1000 (130-400); RBC 4.06 XMIL (4.2-5.4)
[2016-09-13 06:37] LABS: ALBUMIN 2.8 g/dL (3.5-5.0); CALCIUM 8.5 mg/dL (8.8-10.2); MAGNESIUM 1.3 mg/dL (1.5-2.7); POTASSIUM 3.9 mmol/L (3.5-5.1); TOTAL BILIRUBIN 0.34 mg/dL (0.20-1.00); TOTAL PROTEIN 6.1 g/dL (6.3-8.3)
--- NOTE | 2016-09-13 06:42 | PROGRESS NOTE ---
DATE: 09/13/2016 SUBJECTIVE: Ms. Gil is doing better. Cough and chest congestion improving. No high-grade fever or chills. The patient is ambulating with physical therapy. OBJECTIVE: Vital Signs: Vital signs noted. Neck: Supple. No JVD. Lungs: Bilateral good air entry present. CVS: S1 and S2 heard. Abdomen: Soft. No distention. Bowel sounds present. Extremities: No cyanosis, clubbing. Patient has a cast on the left leg. MOTOR VEHICLE CLERK: Alert, awake. Able to move all 4 limbs. The patient does have dementia. Laboratory Data: Her a.m. lab data are pending. CBC done today, hemoglobin 9.5, WBC count 5.11, platelet count was 272,000 which is stable. Electrolytes are pending. Accu-Chek results reviewed. IMPRESSION AND PLAN: Patient admitted with sepsis, possible pneumonia, and urinary tract infection. The patient does have left tibial fracture, hypertension, paroxysmal atrial fibrillation, uterine prolapse. I am going to remove her catheter today. Initially, I was planning to send her home on intravenous antibiotics but to put a peripherally inserted central catheter line for 2 or 3 days of intravenous antibiotics. I think it is much more and more risky. I decided to put her on oral antibiotics, Augmentin. Clinically, patient is afebrile. White count is better. She does not look septic. I am planning to discharge her home on oral antibiotics. Will resume home health. Follow up with me in a week. In case of more distress, call us back or go to the emergency room. cc: Tan Bryan MD
[2016-09-13] MEDS: HUMALOG SUBQ SCH ×2 (06:57→11:57)
[2016-09-13 07:51] LABS: EOS 1 % (1-10); HYPOCHROM 2+; LYMPHS 14 % (21-51); MONO 8 % (1-9)
[2016-09-13] MEDS: LEXAPRO PO SCH (08:11)
[2016-09-13] MEDS: MAXIPIME 1 GM/NS 1 GM/50 ML IVPB IV SCH (08:11)
[2016-09-13] MEDS: NAMENDA XR PO SCH (08:11)
[2016-09-13] MEDS: CORDARONE PO SCH (08:12)
[2016-09-13] MEDS: TOPROL XL PO SCH (08:12)
[2016-09-13] MEDS: ARICEPT PO SCH (08:12)
[2016-09-13] MEDS: SYNTHROID PO SCH (08:12)
[2016-09-13] MEDS: NORVASC PO SCH (08:12)
[2016-09-13 11:32] VITALS: BP 114/58
--- NOTE | 2016-09-14 19:08 | DISCHARGE SUMMARY ---
ADMISSION DATE: 09/07/2016 DISCHARGE DATE: 09/13/2016 FINAL DISCHARGE DIAGNOSES: 1. Sepsis secondary to pneumonia. 2. Patient did have urinary tract infection. 3. Dementia. 4. Metabolic encephalopathy. 5. Diabetes mellitus. 6. Hypertension. 7. Gastritis and reflux disease. 8. Uterine prolapse. 9. Fracture of the left tibia. 10. Osteoarthritis. 11. Situational depression. 12. Hypothyroidism. HISTORY OF PRESENT ILLNESS: Ms. Gil is an 81-year-old, white female patient was sick on the day of admission with chest congestion, cough, fever, increasing confusion and disorientation. The patient was more weak and lethargic. Family called ambulance. The patient was brought to the emergency room. The patient was getting p.o. antibiotics for her UTI. The patient was evaluated in the ER. The patient was weak and lethargic. She had fever, leukocytosis. Chest x-ray did reveal possible pneumonia. Her lactate was elevated. We entertained the possibility of sepsis due to pneumonia and patient was admitted for further care. HOSPITAL COURSE: The patient was treated with IV antibiotics, supportive care, symptomatic treatment. Her clinical condition gradually improved. The patient's D-dimer was elevated. She did have renal insufficiency. I did a V/Q scan and it was negative for pulmonary embolism. The patient did have elevated LFTs. I did a CT scan of the abdomen and pelvis which did reveal bilateral uterine stent. No evidence of biliary dilatation. Patient's LFTs improved. Her CBC also showed improvement. The patient's mental status improved. At one stage I was thinking about giving her IV antibiotics for 2 more days but to put a PICC line I thought is too much, and I decided to treat her with p.o. antibiotics. Clinically patient was improving. Her WBC count and neutrophil count was much improved, and I felt comfortable treating her with p.o. antibiotics. Her Lyn catheter was discontinued. Chest x-ray was showing improvement. The patient was afebrile overall. The overall plan discussed with patient and her family, they are in agreement, and I decided to discharge patient home on oral antibiotics with advice to follow up with me in a week. In case of more distress, call us back or go to the emergency room. DISCHARGE CONDITION: Satisfactory. cc: Tan Bryan MD
== END 2016-09-13 15:34 | disposition home health service (06) ==
LOC: ED 13:06 → 4N 17:23
PROVIDERS: ADMIT Internal Medicine; ATTEND Internal Medicine

== ENCOUNTER 2016-11-28 11:32 | Inpatient (IN) ==
--- NOTE | 2016-11-28 12:38 | Diag Imaging Result Doc PS360 ---
EXAM: CHEST-2 VIEWS HISTORY: possible fall TECHNIQUE: COMPARISON: 09/10/2016 FINDINGS: The right hemidiaphragm is elevated. The heart is not enlarged. The vessels are not distended. No contusion or pneumothorax. No pleural effusions. No compressed thoracic vertebra. IMPRESSION: No injury identified. Electronically signed by Don Emanuel 11/28/2016 12:35 PM
--- NOTE | 2016-11-28 12:48 | Diag Imaging Result Doc PS360 ---
PELVIS W/O CONTRAST - 11/28/2016 INDICATION: fall with pelvis injury TECHNIQUE: A CT dose reduction protocol was used. COMPARISON: 09/08/2016 FINDINGS: Bones are intact and normally aligned. Stable degenerative changes of the sacroiliac joints and lower lumbar spine. Stable bilateral nephroureteral stents in good position. No fracture or dislocation. No bony erosions. IMPRESSION: No acute injury. Electronically signed by Franko Walsh 11/28/2016 12:46 PM
[2016-11-28 13:19] LABS: URINE SOURCE CATH
[2016-11-28 13:21] LABS: MANUAL DIFF NEEDED? NO
[2016-11-28 13:23] LABS: BASO% 0.6 % (0.0-0.8); EOS# 0.11 X1000 (0.0-0.7); EOS% 1.6 % (0.0-10.0); HEMATOCRIT 38.8 % (37.0-47.0); IMM GRAN# 0.04 X1000 (0.0-0.04); IMM GRAN% 0.6 % (0.0-0.5); LYMPH% 7.5 % (20.5-51.1); MCHC 30.9 g/dL (33-37); MONO# 0.53 X1000 (0.11-0.59); MONO% 7.9 % (1.7-9.3); MPV 10.1 FL (7.4-10.4); NEUT% 81.8 % (42.2-75.2); PLT 331 X1000 (130-400); RBC 4.62 XMIL (4.2-5.4)
[2016-11-28 13:27] LABS: BILIRUBIN URINE NEGATIVE (NEGATIVE); BLOOD URINE MODERATE (NEGATIVE); COLOR ORANGE; GLUCOSE URINE NEGATIVE (NEGATIVE); LEUKOCYTES URINE LARGE (NEGATIVE); NITRITE URINE NEGATIVE (NEGATIVE); PH URINE 5.5; PROTEIN URINE 300 mg/dL (NEGATIVE); SP GRAVITY URINE 1.019; TURBIDITY URINE TURBID (CLEAR); UROBILINOGEN URINE NORMAL (NORMAL)
[2016-11-28 13:28] LABS: URINE MICRO REVIEW NEEDED? YES
[2016-11-28 13:35] LABS: UR EPITHELIAL CELLS <10 /HPF (<10); URINE BACTERIA NEGATIVE /HPF; URINE CULTURE NEEDED? YES; URINE RBC TNTC /HPF (<10); URINE WBC TNTC /HPF (<10)
[2016-11-28 13:56] LABS: ALBUMIN 3.4 g/dL (3.5-5.0); CALCIUM 9.5 mg/dL (8.8-10.2); POTASSIUM 4.7 mmol/L (3.5-5.1); TOTAL BILIRUBIN 0.22 mg/dL (0.20-1.00); TOTAL PROTEIN 7.1 g/dL (6.3-8.3)
[2016-11-28] MEDS ORDERED: ROCEPHIN 1 GM/NS 1 GM/50 ML IVPB IV ONE (14:23)
--- NOTE | 2016-11-28 14:31 | PROVIDER DOCUMENTATION ---
This chart was entered by Salty Landers Scribe, acting as scribe for Joselin Nelson MD. HPI-General Adult - General Chief Complaint: General Adult Stated Complaint: FALL Time Seen by Provider: 11/28/16 11:45 Source: patient, family Allergies/Adverse Reactions: Patient Allergies Allergy/AdvReac Type Severity Reaction Status Date / Time No Known Allergies Allergy Verified 11/26/16 08:40 Home Medications: Home Medication List Medication Instructions Recorded Confirmed Last Taken Type Escitalopram [Lexapro] 10 mg PO DAILY 05/30/13 11/26/16 11/25/16 15:30 History ATORVAstatin [Lipitor] 10 mg PO QHS 07/27/15 11/26/16 11/25/16 15:30 History Amiodarone [Cordarone] 200 mg PO DAILY 07/27/15 11/26/16 11/25/16 08:30 History Omeprazole [Prilosec] 20 mg PO DAILY@0700 09/14/15 11/26/16 11/25/16 15:30 History Donepezil [Aricept] 10 mg PO DAILY #0 tablet 09/20/15 11/26/16 11/25/16 15:30 Rx Levothyroxine [Synthroid] 25 microgm PO DAILY 04/11/16 11/26/16 11/25/16 08:30 History Magnesium Oxide [Mag-Ox] 400 mg PO DAILY 04/11/16 11/26/16 11/25/16 08:00 History Insulin Glargine [Lantus] 20 - 28 unit SUBQ QAM 11/22/16 11/26/16 11/25/16 08: 00 History Memantine HCl [Namenda Xr] 28 mg PO DAILY 11/22/16 11/26/16 11/25/16 08:00 History Hydrocodone/APAP 7.5 mg/325 mg 1 each PO Q4H PRN PRN #10 tablet 11/26/16 Unknown Rx [[place]-7.5] - History of Present Illness -Gen Adult Nature of Presenting Problems: Patient is a 81 y/o F that presents to the ER for several issues. Grand daughter reports patient had an episode this morning in which the patient was eased to the floor, patient was unable to get up due to "feeling her bones were all out of placed". patient has no pain now. She was lowered to floor, no loc. Also, grand daughter was concerned about patient's well being at home. Feels she is not being taking care of by family member. has dementia and has anger outbursts. Location of Pain/Injury: reports: none Pain Radiation: reports: no radiation Quality of Pain: reports: none Severity: reports: mild Onset/Duration: reports: abrupt, this morning Timing: reports: gone now Context/Activities at Onset: reports: none Modifying Factors: improves with: nothing Associated Symptoms: denies: back/neck pain, chest pain, diarrhea, fever/chills , genitourinary problems, nausea, vomiting, weakness Similar Symptoms Previously?: No Recently seen or treated by another doctor?: No Review of Systems - Adult - REVIEW OF SYSTEMS - ADULT ROS:: ROS per family Constitutional: denies: chills, fever Eyes: reports: no symptoms reported Ears, Nose, Mouth & Throat: denies: ear discharge, ear pain, sinus problem, throat pain, throat swelling Cardiovascular: denies: chest pain, palpitations, syncope Respiratory: denies: cough, shortness of breath, wheezing Gastrointestinal: denies: abdominal pain, diarrhea, nausea, vomiting Genitourinary: denies: dysuria, frequency, hematuria, urgency Musculoskeletal: denies: back pain, joint pain, muscle weakness, neck pain Integumentary: reports: no symptoms reported Neurological: denies: dizziness/vertigo, headache/migraines, seizure, syncope Psychiatric: reports: no symptoms reported Endocrine: reports: no symptoms reported Hematologic/Lymphatic: reports: no symptoms reported Allergic/Immunologic: reports: no symptoms reported All Other Systems: Reviewed and Negative Past History - Adult - PAST MEDICAL HISTORY-ADULT Review of Records: reports: Old Records Reviewed, Nursing Assessment Review, Medications Reviewed Cardiovascular: reports: HTN, hyperlipidemia Gastrointestinal: reports: GERD Musculoskeletal: reports: arthritis Neurological: reports: Alzheimer's, dementia Endocrine/Immune: reports: Diabetes - PRIOR SURGERIES/PROCEDURES Surgical/Procedure History: reports: reviewed, not pertinent - PRIOR HOSPITALIZATIONS Prior Hospitalizations: reports: for other non-related - IMMUNIZATION STATUS Childhood Immunizations: See Nurse Assessment Flu Vaccine: NUTD - FAMILY HISTORY Family History: reviewed, not pertinent - SOCIAL HISTORY Smoking: non-smoker Living Situation: family Physical Exam-General - PHYSICAL EXAM-ADULT Initial Vital Signs Reviewed: Yes - CONSTITUTIONAL General Appearance: alert, no apparent distress - EYES Eyes: PERRL/EOMI, pink conjunctivae - HEAD, EARS, NOSE, MOUTH & THROAT HENMT: normocephalic/atraumatic, moist mucous membranes, normal ENT inspection - NECK Neck: full range of motion, normal inspection - RESPIRATORY Respiratory: lungs clear, normal breath sounds, no respiratory distress, no accessory muscle use - CARDIOVASCULAR Cardiovascular: regular rate, rhythm, no edema, no murmur - GASTROINTESTINAL (ABDOMEN) Abdominal Exam: normal bowel sounds, non tender, soft - MUSCULOSKELETAL Extremity: normal inspection, no pedal edema - SKIN Integumentary: normal color, warm/dry - NEUROLOGIC Neurologic: negative: facial droop, focal weakness, motor weakness - PSYCHIATRIC Psych/Mental Status: other (to her normal baseline) Progress - PLAN OF CARE/RESULTS Progress/Plan/Lab Results: Vital Signs - 8 hr 11/28/16 11:38 Temperature 97.9 F Pulse Rate 65 Respiratory Rate 18 Blood Pressure 136/58 O2 Sat by Pulse Oximetry 95 Case management involved. POA and DHR will be contacted Vital Signs Temp Pulse Resp BP Pulse Ox 11/28/16 13:56 60 18 153/45 95 11/28/16 11:38 97.9 F 65 18 136/58 95 No Known Allergies Allergy (Verified 11/26/16 08:40) Escitalopram [Lexapro] 10 mg PO DAILY 05/30/13 ATORVAstatin [Lipitor] 10 mg PO QHS 07/27/15 Amiodarone [Cordarone] 200 mg PO DAILY 07/27/15 Omeprazole [Prilosec] 20 mg PO DAILY@0700 09/14/15 Donepezil [Aricept] 10 mg PO DAILY #0 tablet 09/20/15 Levothyroxine [Synthroid] 25 microgm PO DAILY 04/11/16 Magnesium Oxide [Mag-Ox] 400 mg PO DAILY 04/11/16 Insulin Glargine [Lantus] 20 - 28 unit SUBQ QAM 11/22/16 Memantine HCl [Namenda Xr] 28 mg PO DAILY 11/22/16 Hydrocodone/APAP 7.5 mg/325 mg [[place]-7.5] 1 each PO Q4H PRN PRN #10 tablet Dietary Diet Regular Diet Start SatNov 28 1399 I&O 11/27/16 11/28/16 11/29/16 06:59 06:59 06:59 Output Total Balance -30 / -30 Laboratory 11/28/16 11/28/16 11/28/16 13:17 13:17 13:17 WBC 6.67 RBC 4.62 Hgb 12.0 Hct 38.8 MCV 84.0 MCH 26.0 L MCHC 30.9 L RDW Std Deviation 18.7 H Plt Count 331 MPV 10.1 Immature Gran % (Auto) 0.6 H Neut % (Auto) 81.8 H Lymph % (Auto) 7.5 L [place] % (Auto) 7.9 Eos % (Auto) 1.6 Baso % (Auto) 0.6 Immature Gran # (Auto) 0.04 Neut # (Auto) 5.45 Lymph # (Auto) 0.50 L [place] # (Auto) 0.53 Eos # (Auto) 0.11 Baso # (Auto) 0.04 Sodium 140 Potassium 4.7 Chloride 100 Carbon Dioxide 27 Anion Gap 13 BUN 25 H Creatinine 1.8 H Estimated GFR/1.73 m2 27 BUN/Creatinine Ratio 14 Glucose 151 H Calculated Osmolality 287 Calcium 9.5 Total Bilirubin 0.22 AST 31 H ALT 16 Alkaline Phosphatase 147 H Creatine Kinase 17 L Troponin T 0.028 Total Protein 7.1 Albumin 3.4 L Globulin 3.7 Albumin/Globulin Ratio 0.9 Urine Source Urine Color Urine Turbidity Urine pH Ur Specific [place] Urine Protein Ur Glucose (Stick) Ur Ketones (Stick) Urine Blood Urine Nitrite Urine Bilirubin Urobilinogen Dipstick Urine Leukocytes Urine WBC (Auto) Urine RBC (Auto) U Epithel Cells (Auto) Urine Bacteria (Auto) Urine Crystals Small Round Cells Urine Casts Urine Yeast-like Cells 11/28/16 13:00 WBC RBC Hgb Hct MCV MCH MCHC RDW Std Deviation Plt Count MPV Immature Gran % (Auto) Neut % (Auto) Lymph % (Auto) [place] % (Auto) Eos % (Auto) Baso % (Auto) Immature Gran # (Auto) Neut # (Auto) Lymph # (Auto) [place] # (Auto) Eos # (Auto) Baso # (Auto) Sodium Potassium Chloride Carbon Dioxide Anion Gap BUN Creatinine Estimated GFR/1.73 m2 BUN/Creatinine Ratio Glucose Calculated Osmolality Calcium Total Bilirubin AST ALT Alkaline Phosphatase Creatine Kinase Troponin T Total Protein Albumin Globulin Albumin/Globulin Ratio Urine Source CATH Urine Color ORANGE Urine Turbidity TURBID Urine pH 5.5 Ur Specific [place] 1.019 Urine Protein 300 A Ur Glucose (Stick) NEGATIVE Ur Ketones (Stick) NEGATIVE Urine Blood MODERATE A Urine Nitrite NEGATIVE Urine Bilirubin NEGATIVE Urobilinogen Dipstick NORMAL Urine Leukocytes LARGE A Urine WBC (Auto) TNTC A Urine RBC (Auto) TNTC A U Epithel Cells (Auto) <10 Urine Bacteria (Auto) NEGATIVE Urine Crystals Not Reportable Small Round Cells Not Reportable Urine Casts Not Reportable Urine Yeast-like Cells PRESENT Orders Category Date Time Status IV Insertion ORDERED Care 11/28/16 12:12 Completed Straight Catheterization ORDERED Care 11/28/16 12:13 Active Regular Diet Diet 11/28/16 14:00 Active CHEST-2 VIEWS [RAD] Stat Exams 11/28/16 12:12 Completed PELVIS W/O CONTRAST [CT] Stat Exams 11/28/16 12:13 Completed CBC WITH DIFF [HEME] Stat Lab 11/28/16 13:17 Completed CK PROFILE [SP CHEM] Stat Lab 11/28/16 13:17 Completed COMPREHENSIVE METABOLIC PANEL [CHEM] Stat Lab 11/28/16 13:17 Completed TROPONIN T Stat Lab 11/28/16 13:17 Completed URINALYSIS W/POSS RFLX CULT-1 [URINALYSIS] Stat Lab 11/28/16 13:00 Completed URINE CULTURE [RM] Routine Lab 11/28/16 13:36 Received URINE MANUAL MICROSCOPIC [URINALYSIS] Stat Lab 11/28/16 13:00 Completed will be paged for admission at 1402 Result Diagrams: 11/28/16 13:17 11/28/16 13:17 - XRAY 1 XRAY Study: Chest Impression: Abnormal XRAY Interpretation: no injury, right hemidiaphragm elevated - CT/MRI 1 CT Study: Pelvis Impression: Normal CT Results: no acute injury - CONSULTS/PCP/HOSPITALIST Notification #1 *Consult/PCP/Hospitalist*: Time Discussed: 14:15 Departure - Departure Date of Disposition Decision: 11/28/16 Time of Disposition Decision: 14:17 DIAGNOSIS: Weakness UTI (urinary tract infection) Qualifiers: Urinary tract infection type: acute cystitis Hematuria presence: with hematuria Qualified Code(s): N30.01 - Acute cystitis with hematuria Disposition: ADMITTED INPATIENT 09 Certified Medical Emergency: Emergent Condition: Stable Referrals and Follow-Ups: Tan Bryan MD [Primary Care Provider] - - Critical Care Note This patient required my direct & personal management of CC.: No This chart was documented by the indicated scribe, (Salty Landers, Scribe) and accurately reflects the services I performed and decisions made by me, Joselin Nelson MD, as attested by the provider's signature.
[2016-11-28] MEDS ORDERED: MORPHINE IV PRN (16:24)
[2016-11-28] MEDS ORDERED: TYLENOL PO PRN (16:24)
[2016-11-28] MEDS ORDERED: ZOFRAN IV PRN (16:24)
[2016-11-28] MEDS: INVANZ 0.5 GM in NS 50 ML IV SCH (17:33)
[2016-11-28] MEDS: LOVENOX SUBQ SCH (20:02)
[2016-11-28] MEDS: LIPITOR PO SCH (21:00)
[2016-11-28] MEDS ORDERED: NS + KCL 20 MEQ 1,000 ML IV SCH (21:02)
--- NOTE | 2016-11-28 22:31 | HISTORY AND PHYSICAL ---
CHIEF COMPLAINT: Weakness. HISTORY OF PRESENT ILLNESS: Ms. Gil, an 81-year-old white female patient, not doing well last 2 days. History taken from the patient's daughter and the emergency room record. The patient was at home. The patient was in her transport chair and she had begun falling out. Granddaughter and family helped her, lowered her to the ground. Granddaughter brought her to the emergency room to get a check and make sure there was no major trauma. Lately patient was not doing well. She did have some chills, low-grade fever, increasing confusion. In the emergency room her urinalysis did reveal significant UTI. Before according to daughter, she was walking with a walker, but last few days she was not. History part is very vague. The patient also had evidence of acute kidney injury. Patient also had a stage I pressure sore on the gluteal area. Because of UTI, altered mental status, we decided to admit the patient for further care. Her oral intake was variable. No nausea or vomiting. Vague chest pain. No palpitations. Occasional cough. No expectoration or hemoptysis. The patient did have vague abdominal pain. No constipation. No diarrhea, blood or mucus in the stool. According to daughter, this morning her stool was loose. No vaginal discharge. The patient does have uterine prolapse. The patient does need significant assistance in activities of daily living. The patient does have advanced dementia. ALLERGIES: No known drug allergy. MEDICATIONS: The patient is on Aricept, Namenda, Lantus insulin, Humalog, Lipitor, Lexapro, Synthroid, magnesium oxide, Prilosec, Zofran. PAST MEDICAL HISTORY: Significant for uterine prolapse, obstructive uropathy. The patient is requiring J-stent. Advanced dementia. Diabetes mellitus. Hyperlipidemia. Hypothyroidism. Gastritis and reflux disease. Osteoarthritis. History of tibia and fibular fracture. Recent respiratory failure and pneumonia. Coronary artery disease. Paroxysmal atrial fibrillation. PERSONAL HISTORY: . Lives with the . Nonsmoker. Denied alcohol or substance abuse. REVIEW OF SYSTEMS: As per HPI. Otherwise, unobtainable. PHYSICAL EXAMINATION: GENERAL: Elderly white female patient in no acute distress. VITAL SIGNS: In the emergency room, blood pressure 136/58, pulse 65, respiration 18, temperature 97.9 degrees. SKIN: Senile turgor. No rash or petechiae. HEENT: Head atraumatic, normocephalic. Sesser conjunctivae. Anicteric sclerae. Extraocular muscle movement normal. Fundus sharp discs. Ears and nose benign. NECK: Supple. No JVD, thyromegaly or lymphadenopathy. CHEST: Bilateral good air entry present. No rales or rhonchi. CARDIOVASCULAR: S1 and S2 heard, 1-2/6 systolic murmur at the apex. No gallop or thrill. ABDOMEN: Soft, globular. Globular bowel sounds present. Mild hypogastric tenderness. No guarding or rigidity. EXTREMITIES: No cyanosis, clubbing. No acute DVT. EARTH AUGER OPERATOR: Alert, awake. Able to move all 4 limbs. Patient does have dementia. According to nurses, patient does have redness on both the gluteal area, but no skin breakdown. LABORATORY AND IMAGING: Her blood work, hemoglobin 12, hematocrit 38.8, WBC count 6.67, platelet count 331,000. Electrolytes: BUN 25, creatinine 1.8, cardiac isoenzymes were negative. Urinalysis: Urine was turbid. Did show evidence of urinary tract infection. It did have significant proteinuria, too numerous to count WBC and RBC, and there was yeast present. Urine culture result is pending. Because of fall, we did a pelvic CT and there was no acute injury. Chest x-ray did not show any acute disease. CONSIDERATION: 1. Urinary tract infection. 2. Alzheimer's type dementia. 3. Diabetes mellitus. 4. Hypertension. 5. Hyperlipidemia. 6. History of fall. 7. Osteoarthritis. 8. Acute kidney injury. 9. Situational depression. PLAN: Admit the patient. I will do gentle hydration. IV antibiotics. Urine culture. Close observation. Fall precaution. Overall plan discussed with patient and family. They are in agreement. cc: Tan Bryan MD
[2016-11-29] MEDS: HUMALOG SUBQ SCH ×5 (04:17→20:48)
[2016-11-29] MEDS: PRILOSEC PO SCH (06:27)
[2016-11-29] MEDS ORDERED: NS + KCL 20 MEQ 1,000 ML IV ONE (07:16)
--- NOTE | 2016-11-29 07:51 | EKG Report ---
Test Performed on : 11/29/2016 07:29:57 AM Test Reason : CP Blood Pressure : / mmHG Vent. Rate : 056 BPM Atrial Rate : 056 BPM P-R Int : 170 ms QRS Dur : 090 ms QT Int : 500 ms P-R-T Axes : 049 036 039 degrees QTc Int : 482 ms Sinus bradycardia. Otherwise normal ECG When compared with ECG of 07-SEP-2016 17:36, No significant change was found Confirmed by Roly Jordan MD ([id number]) on 12/04/2016 6:00:50 AM
[2016-11-29] MEDS: ARICEPT PO SCH (09:03)
[2016-11-29] MEDS: MAG-OX PO SCH (09:03)
[2016-11-29] MEDS: SYNTHROID PO SCH (09:03)
[2016-11-29] MEDS: NAMENDA XR PO SCH (09:04)
[2016-11-29] MEDS: LANTUS SUBQ SCH (09:04)
[2016-11-29] MEDS: LEXAPRO PO SCH (09:04)
--- NOTE | 2016-11-29 09:05 | PROGRESS NOTE ---
DATE: 11/29/2016 SUBJECTIVE: Ms. Gil is doing better. No high-grade fever or chills. Denied any nausea or vomiting. The patient is at times bradycardic. No diarrhea. No typical chest pain. PHYSICAL EXAMINATION: Vital Signs: Her vital signs noted. Lungs: Bilateral good air entry present. CVS: S1 and S2 heard. Abdomen: Soft, globular. Bowel sounds present. SANITIZER: Alert, awake. Able to move all 4 limbs. CONSIDERATION: 1. Patient admitted with a urinary tract infection. 2. She does have dementia. 3. Paroxysmal atrial fibrillation. 4. Osteoarthritis. 5. Diabetes mellitus. 6. She had history of a fall. PLAN: I am going to get EKG. Check appropriate lab in the morning. I am going to hydrate her. Get physical therapy evaluation. Continue rest of the treatment. Check appropriate labs tomorrow. cc: Tan Bryan MD
[2016-11-29] MEDS: LOVENOX SUBQ SCH (18:02)
[2016-11-29] MEDS: INVANZ 0.5 GM in NS 50 ML IV SCH (18:02)
[2016-11-29] MEDS ORDERED: AMBIEN PO PRN (19:30)
[2016-11-29] MEDS: LIPITOR PO SCH (20:46)
[2016-11-30] MEDS: PRILOSEC PO SCH (06:21)
[2016-11-30] MEDS: HUMALOG SUBQ SCH ×3 (06:21→16:02)
[2016-11-30 06:29] LABS: MANUAL DIFF NEEDED? NO
[2016-11-30 06:42] LABS: HEMOGLOBIN A1C 7.3 % (4.8-6.0)
[2016-11-30 06:45] LABS: CALCIUM 9.1 mg/dL (8.8-10.2); MAGNESIUM 1.6 mg/dL (1.5-2.7); POTASSIUM 4.5 mmol/L (3.5-5.1); TOTAL BILIRUBIN 0.17 mg/dL (0.20-1.00); TOTAL PROTEIN 6.5 g/dL (6.3-8.3)
[2016-11-30 06:46] LABS: BASO% 1.6 % (0.0-0.8); EOS# 0.21 X1000 (0.0-0.7); EOS% 4.2 % (0.0-10.0); HEMATOCRIT 37.9 % (37.0-47.0); HEMOGLOBIN 11.9 g/dL (12.0-16.0); IMM GRAN# 0.05 X1000 (0.0-0.04); LYMPH# 0.67 X1000 (1.2-3.4); LYMPH% 13.4 % (20.5-51.1); MCH 26.4 PG (27-31); MCHC 31.4 g/dL (33-37); MCV 84.2 FL (81-99); MONO# 0.53 X1000 (0.11-0.59); MONO% 10.6 % (1.7-9.3); MPV 9.5 FL (7.4-10.4); NEUT% 69.2 % (42.2-75.2); PLT 277 X1000 (130-400)
[2016-11-30] MEDS ORDERED: COZAAR PO SCH (09:00)
[2016-11-30] MEDS: LANTUS SUBQ SCH (10:12)
[2016-11-30] MEDS: SYNTHROID PO SCH (10:14)
[2016-11-30] MEDS: NAMENDA XR PO SCH (10:14)
[2016-11-30] MEDS: MAG-OX PO SCH (10:14)
[2016-11-30] MEDS: ARICEPT PO SCH (10:14)
[2016-11-30] MEDS: LEXAPRO PO SCH (10:14)
[2016-11-30 15:43] VITALS: BP 138/57
[2016-11-30] MEDS: INVANZ 0.5 GM in NS 50 ML IV SCH (15:48)
[2016-11-30] MEDS: LOVENOX SUBQ SCH (18:36)
--- NOTE | 2016-12-06 07:03 | DISCHARGE SUMMARY ---
ADMISSION DATE: 11/28/2016 DISCHARGE DATE: 11/30/2016 DISCHARGE SUMMARY ADDENDUM: Ms. Gil does have UTI secondary to zarina, suggestive of candidiasis of urogenital tract. The patient was treated with Diflucan. cc: Tan Bryan MD
== END 2016-11-30 18:10 | disposition home or self-care (01) ==
LOC: ED 11:32 → 3N 15:13
PROVIDERS: ADMIT Internal Medicine; ATTEND Internal Medicine

== ENCOUNTER 2018-10-27 15:26 | Inpatient (IN) ==
--- NOTE | 2018-10-27 16:59 | Diag Imaging Result Doc PS360 ---
EXAM: PELVIS 10/27/2018 HISTORY: pain TECHNIQUE: AP pelvis COMMENT: There are bilateral ureteral stents. There is solid stool in the rectum and elsewhere in the transverse and descending colon. There is generalized osteopenia. There is extensive arteriosclerosis in the femoral arteries. There are phleboliths in the pelvis. There is no evidence of acute bony abnormality and compared to 08/27/2018 there has been no apparent change. IMPRESSION: No evidence of acute bony disease. Electronically signed by Stevie Martin 10/27/2018 4:57 PM
--- NOTE | 2018-10-27 17:00 | Diag Imaging Result Doc PS360 ---
EXAM: FEMUR MIN 2 VIEWS LEFT 10/27/2018 HISTORY: leg pain TECHNIQUE: Left femur three views COMMENT: There is extensive calcification of the superficial femoral and popliteal arteries. There are degenerative changes in the knee. There is no evidence of fracture or dislocation periosteal reaction or erosion. IMPRESSION: No acute bony abnormality. Atherosclerosis. Electronically signed by Stevie Martin 10/27/2018 4:57 PM
--- NOTE | 2018-10-27 17:02 | Diag Imaging Result Doc PS360 ---
EXAM: LUMBAR SPINE 10/27/2018 HISTORY: back pain TECHNIQUE: Lumbosacral spine with obliques six views COMMENT: There is extensive calcification of the abdominal aorta which appears to be normal in caliber. There are degenerative disc changes with anterior osteophyte formation at L2-3 and L3-4 and there is anterolisthesis of L4 on L5. The pedicles are intact. There is degenerative facet disease at the L4-5 and L5-S1 levels. There are no plain radiographs available for comparison, however in comparison with the CT of 09/08/2016 the degree of anterolisthesis at L4-5 appears slightly worse. This may be due to differences in positioning however. IMPRESSION: Spondylolisthesis at L4-5. Generalized degenerative disc disease. Electronically signed by Stevie Martin 10/27/2018 5:00 PM
[2018-10-27 18:07] LABS: URINE SOURCE CATH
[2018-10-27 18:16] LABS: BILIRUBIN URINE NEGATIVE (NEGATIVE); BLOOD URINE MODERATE (NEGATIVE); COLOR ORANGE; GLUCOSE URINE NEGATIVE (NEGATIVE); KETONE URINE NEGATIVE (NEGATIVE); LEUKOCYTES URINE LARGE (NEGATIVE); NITRITE URINE POSITIVE (NEGATIVE); PH URINE 5.5; PROTEIN URINE 200 mg/dL (NEGATIVE); TURBIDITY URINE TURBID (CLEAR); UROBILINOGEN URINE NORMAL (NORMAL)
[2018-10-27 18:27] LABS: UR EPITHELIAL CELLS >10 /HPF (<10); URINE BACTERIA 4+ /HPF; URINE RBC TNTC /HPF (<10); URINE WBC TNTC /HPF (<10)
[2018-10-27 18:37] LABS: URINE CASTS GRANULAR PRESENT; URINE CRYSTALS NONE SEEN; URINE SMALL ROUND CELLS NONE SEEN; URINE YEAST PRESENT
--- NOTE | 2018-10-27 18:49 | PROVIDER DOCUMENTATION ---
This chart was entered by Carri Toure Scribe, acting as scribe for Darrel Galvez MD. HPI-Musculoskeletal Pain/Inj - GENERAL Source: patient - HX OF PRESENT ILLNESS-MUSKULOSKELTAL Quality of Pain: reports: aching Severity in ED: mild Onset/Duration: this morning Timing: still present Modifying Factors: improves with: nothing Any recent injury?: No Locality of Occurance: Home Similar Symptoms Previously?: No Recently seen or treated by another doctor?: No - HIP/PELVIS PAIN/INJURY Hip Pain Location: reports: hip (L) Pain Radiation: reports: other (left knee) Context / Method of Injury: reports: unknown - LOWER EXTREMITY PAIN/INJURY Lower Extremities Pain: hip: left, knee: left Context / Method of Injury: reports: unknown <Darrel Galvez - Last Filed: 10/27/18 18:53> <Janki Spain - Last Filed: 10/27/18 21:37> - GENERAL Stated Complaint: LEFT LEG PAIN Time Seen by Provider: 10/27/18 15:39 - HX OF PRESENT ILLNESS-MUSKULOSKELTAL Nature of Presenting Problem: Patient is a 83 year old female who presents to the ED via EMS with left hip pain that radiates to left knee. Patient's granddaughter states patient started complaining of pain this morning. Denies recent fall or injury. Granddaughter states giving patient Aleve 1 hour ago. History of Alzheimer's. (Darrel Glass) Review of Systems - Adult - REVIEW OF SYSTEMS - ADULT ROS:: ROS per family (granddaughter) Constitutional: reports: no symptoms reported. denies: chills, fever, fatique Eyes: reports: no symptoms reported Ears, Nose, Mouth & Throat: reports: no symptoms reported Cardiovascular: reports: no symptoms reported Respiratory: reports: no symptoms reported Gastrointestinal: reports: no symptoms reported Genitourinary: reports: no symptoms reported Musculoskeletal: reports: see HPI, other (left hip to left knee pain). denies: back pain, neck pain Integumentary: reports: no symptoms reported Neurological: reports: no symptoms reported Psychiatric: reports: no symptoms reported Endocrine: reports: no symptoms reported Hematologic/Lymphatic: reports: no symptoms reported Allergic/Immunologic: reports: no symptoms reported All Other Systems: Reviewed and Negative <Darrel Galvez - Last Filed: 10/27/18 18:53> Past History - Adult - PAST MEDICAL HISTORY-ADULT Review of Records: reports: Old Records Reviewed, Nursing Assessment Review, Medications Reviewed, Social history reviewed & non-contributory. Major Childhood Illnesses: reports: denies history Cardiovascular: reports: CAD, CHF, HTN, hyperlipidemia, SD Respiratory: reports: sleep apnea Gastrointestinal: reports: GERD Obstetrical/Gynecological: reports: denies history Genitourinary: reports: kidney disease Musculoskeletal: reports: arthritis, chronic pain Neurological: reports: Alzheimer's, dementia, TIA Psychiatric: reports: denies history Endocrine/Immune: reports: Diabetes, thyroid disorder Other Conditions: reports: denies history - PRIOR SURGERIES/PROCEDURES Surgical/Procedure History: reports: cholecystectomy, cardiac stent, hysterectomy - PRIOR HOSPITALIZATIONS Prior Hospitalizations: reports: for other non-related - IMMUNIZATION STATUS Childhood Immunizations: See Nurse Assessment Flu Vaccine: See Nurse Assessment - FAMILY HISTORY Family History: reviewed, not pertinent - SOCIAL HISTORY Smoking: denies Substance Use: denies Living Situation: family <Darrel Galvez - Last Filed: 10/27/18 18:53> Physical Exam-Injury Related - Physical Exam-Injury Related Initial Vital Signs Reviewed: Yes General Appearance: alert, no apparent distress. negative: lethargic, slow to respond Respiratory: chest non-tender, lungs clear, normal breath sounds. negative: rhonchi, wheezing Cardiovascular: normal peripheral pulses, regular rate, rhythm. negative: tachycardia, systolic murmur Abdominal Exam: normal bowel sounds, non tender, soft. negative: guarding, rebound Extremity: non-tender, pelvis stable, other (limited ROM to left leg.). negative: deformity, erythema, swelling Integumentary: normal color, warm/dry. negative: ecchymosis, rash, abrasion, laceration Neurologic: grossly normal. negative: aphasia, facial droop Psych/Mental Status: normal mood/affect. negative: anxious, paranoid <Darrel Galvez - Last Filed: 10/27/18 18:53> Progress - XRAY 1 XRAY: Left XRAY Study: Femur Impression: See EMR Report ( EXAM: FEMUR MIN 2 VIEWS LEFT 10/27/2018 HISTORY: leg pain TECHNIQUE: Left femur three views COMMENT: There is extensive calc ification of the superficial femoral and popliteal arteries. There are degenerative changes in the knee. There is no evidence of fracture or dislocation periosteal reaction or erosion. IMPRESSION: No acute bony abnormality. Atherosclerosis. Electronically signed by Stevie Martin 10/27/2018 4:57 PM 10/27/187 Interpreting Physician: Stevie Martin MD Dictated Date/Time: 10/27/181656 cc: Darrel Galvez MD; Tan Bryan MD) 2 XRAY Study: Pelvis Impression: See EMR Report ( EXAM: PELVIS 10/27/2018 HISTORY: pain TECHNIQUE: AP pelvis COMMENT: There are bilateral ureteral stents. There is solid stool in the rectum and elsewhere in the transverse and descending colon. There is generalized osteopenia. There is extensive arteriosclerosis in the femoral arteries. There are phleboliths in the pelvis. There is no evidence of acute bony abnormality and compared to 08/27/2018 there has been no apparent change. IMPRESSION: No evidence of acute bony disease. Electronically signed by Stevie Martin 10/27/2018 4:57 PM 10/27/187 Interpreting Physician: Stevie Martin MD Dictated Date/Time: 10/27/181655 cc: Darrel Galvez MD; Tan Bryan MD) 3 XRAY Study: Lumbar Spine Impression: See EMR Report (EXAM: LUMBAR SPINE 10/27/2018 HISTORY: back pain TECHNIQUE: Lumbosacral spine with obliques six views COMMENT: There is extensive calcification of the abdominal aorta which appears to be normal in caliber. There are degenerative disc changes with anterior osteophyte formation at L2-3 and L3-4 and there is anterolisthesis of L4 on L5. The pedicles are intact. There is degenerative facet disease at the L4-5 and L5-S1 levels. There are no plain radiographs available for comparison, however in comparison with [facility] CT of 09/08/2016 the degree of anterolisthesis at L4-5 appears slightly worse. This may be due to differences in positioning however. IMPRESSION: Spondylolisthesis at L4-5. Generalized degenerative disc disease. Electronically signed by Stevie Martin 10/27/2018 5:00 PM 10/27/18 1700 Interpreting Physician: Stevie Martin MD Dictated Date/Time: 10/27/18 9655 cc: Darrel Galvez MD; Tan Bryan MD) - CHANGE OF SHIFT REPORT (ED Provider) 1 Report Given and Care Transferred to:: Dr Spain Time of Transfer: 19:00 Items Pending: Labs <Darrel Galvez - Last Filed: 10/27/18 18:53> - PLAN OF CARE/RESULTS Result Diagrams: 10/27/18 19:56 10/27/18 19:56 - EKG 1 Time of EKG reading by physician:: 19:35 EKG Read and Signed by:: Janki Spain EKG Interpretation (*Must complete 3 of following elements*): Abnormal Rate: 69 Rhythm: NSR [place]: normal QRS: normal ST Wave: non-specific ST changes <Janki Spain - Last Filed: 10/27/18 21:37> - PLAN OF CARE/RESULTS Progress/Plan/Lab Results: Vital Signs - 8 hr 10/27/18 15:43 10/27/18 15:50 10/27/18 16:03 Temperature 97.9 F Pulse Rate 62 Respiratory Rate 18 Blood Pressure 121/97 121/97 108/64 O2 Sat by Pulse Oximetry 93 L 94 L 95 10/27/18 16:43 10/27/18 17:03 10/27/18 17:32 Temperature Pulse Rate Respiratory Rate Blood Pressure 136/79 128/67 O2 Sat by Pulse Oximetry 92 L 93 L 10/27/18 18:04 Temperature Pulse Rate Respiratory Rate Blood Pressure 112/59 O2 Sat by Pulse Oximetry Laboratory Results - last 24 hr 10/27/18 10/27/18 10/27/18 17:22 19:56 19:56 WBC 5.34 RBC 4.30 Hgb 12.4 Hct 37.4 MCV 87.0 MCH 28.8 MCHC 33.2 RDW Std Deviation 13.8 Plt Count 238 MPV 10.4 Immature Gran % (Auto) 0.0 Neut % (Auto) 73.0 Lymph % (Auto) 16.1 L [place] % (Auto) 9.0 Eos % (Auto) 1.3 Baso % (Auto) 0.6 Immature Gran # (Auto) 0.00 Neut # (Auto) 3.90 Lymph # (Auto) 0.86 L [place] # (Auto) 0.48 Eos # (Auto) 0.07 Baso # (Auto) 0.03 Sodium 142 Potassium 4.5 Chloride 106 Carbon Dioxide 25 Anion Gap 11 BUN 32 H Creatinine 2.0 H Estimated GFR/1.73 m2 24 BUN/Creatinine Ratio 16 Glucose 53 L Calculated Osmolality 287 Calcium 9.6 Total Bilirubin 0.19 L AST 34 H ALT 25 Alkaline Phosphatase 137 H Troponin T Total Protein 6.3 Albumin 3.7 Globulin 2.6 Albumin/Globulin Ratio 1.4 Urine Source CATH Urine Color ORANGE Urine Turbidity TURBID Urine pH 5.5 Ur Specific [place] 1.010 Urine Protein 200 A Ur Glucose (Stick) NEGATIVE Ur Ketones (Stick) NEGATIVE Urine Blood MODERATE A Urine Nitrite POSITIVE A Urine Bilirubin NEGATIVE Urobilinogen Dipstick NORMAL Urine Leukocytes LARGE A Urine WBC (Auto) TNTC A Urine RBC (Auto) TNTC A U Epithel Cells (Auto) >10 A Urine Bacteria (Auto) 4+ Urine Crystals NONE SEEN Small Round Cells NONE SEEN Urine Casts GRANULAR PRESENT Urine Yeast-like Cells PRESENT 10/27/18 19:56 WBC RBC Hgb Hct MCV MCH MCHC RDW Std Deviation Plt Count MPV Immature Gran % (Auto) Neut % (Auto) Lymph % (Auto) [place] % (Auto) Eos % (Auto) Baso % (Auto) Immature Gran # (Auto) Neut # (Auto) Lymph # (Auto) [place] # (Auto) Eos # (Auto) Baso # (Auto) Sodium Potassium Chloride Carbon Dioxide Anion Gap BUN Creatinine Estimated GFR/1.73 m2 BUN/Creatinine Ratio Glucose Calculated Osmolality Calcium Total Bilirubin AST ALT Alkaline Phosphatase Troponin T < 0.010 Total Protein Albumin Globulin Albumin/Globulin Ratio Urine Source Urine Color Urine Turbidity Urine pH Ur Specific [place] Urine Protein Ur Glucose (Stick) Ur Ketones (Stick) Urine Blood Urine Nitrite Urine Bilirubin Urobilinogen Dipstick Urine Leukocytes Urine WBC (Auto) Urine RBC (Auto) U Epithel Cells (Auto) Urine Bacteria (Auto) Urine Crystals Small Round Cells Urine Casts Urine Yeast-like Cells Orders Category Date Time Status FEMUR MIN 2 VIEWS LEFT [RAD] Stat Exams 10/27/18 15:52 Completed LUMBAR SPINE [RAD] Stat Exams 10/27/18 15:55 Completed PELVIS [RAD] Stat Exams 10/27/18 15:52 Completed CBC WITH ELECTRONIC DIFF [HEME] Stat Lab 10/27/18 19:56 Completed COMPREHENSIVE METABOLIC PANEL [CHEM] Stat Lab 10/27/18 19:56 Completed TROPONIN T Stat Lab 10/27/18 19:56 Completed URINALYSIS [URINALYSIS] Stat Lab 10/27/18 17:22 Completed URINE MANUAL MICROSCOPIC [URINALYSIS] Stat Lab 10/27/18 17:22 Completed CefTRIAXONE [Rocephin] 1 gm Med 10/27/18 21:01 Discontinued 0.9% Sodium Chloride Inj [Ns] 50 ml IV NOW EKG [EKG] Stat Ther 10/27/18 18:53 Ordered At recheck pt and family note they would like pt chested for CP she was c/o yesterday. (Darrel Galvez) Patient with labs at her baseline. Cr 2.0 but has history of CKD. Troponin negative. EKG nothing acute. SPoke to patient's caregiver about possible admission given UTI and they agreed for admission. She might also benefit from possible evaluation for placement. SPoke to Dr Robertson who accepted patient for admission. Further orders to be placed by hospitalist team. (Janki Spain) Departure - Departure Date of Disposition Decision: 10/27/18 Certified Medical Emergency: Emergent - Critical Care Note This patient required my direct & personal management of CC.: No <Darrel Galvez - Last Filed: 10/27/18 18:53> - Departure Time of Disposition Decision: 21:34 <Janki Spain - Last Filed: 10/27/18 21:37> - Departure DIAGNOSIS: UTI (urinary tract infection), Arthritis Disposition: ADMITTED INPATIENT 09 Condition: Good Additional Freetext Instructions: Follow up with your dR tomorrow as scheduled. To ER sooner if worse. ED Follow Up Instructions: You have been treated by a care provider in the Emergency Department. These instructions are being provided to you so you can have an understanding of how to care for yourself upon discharge. Upon discharge from the Emergency Department, you are responsible for making arrangements for follow-up care by a physician of your choice. Take all prescribed medications as directed. Return to the Emergency Department immediately for any new or worsening symptoms. You may call the Physician Referral phone number at [phone] to obtain a list of Physicians who are taking new patients. Prescriptions: Nitrofurantoin Monohyd/M-Cryst [Macrobid 100 mg Capsule] 100 mg PO BID 10 Days #20 cap Referrals and Follow-Ups: None,PCP [NON-STAFF PROVIDER] - Discharge Education: Urinary Tract Infection, Adult Attestation - Physician/ ANA Attestation Patient care was provided by Advanced Practice Provider:: No The physician spent face to face time with patient:: Yes Advanced Practice Provider documentation review:: Supervising physician onsite and consulted in the evaluation and care of this patient. The physician did have a face to face encounter with the patient. <Darrel Galvez - Last Filed: 10/27/18 18:53> This chart was documented by the indicated scribe, (Carri Toure, Melissa) and accurately reflects the services I performed and decisions made by me, Darrel Galvez MD, as attested by the provider's signature.
[2018-10-27 20:12] LABS: BASO# 0.03 X1000 (0.0-0.2); BASO% 0.6 % (0.0-0.8); EOS# 0.07 X1000 (0.0-0.7); EOS% 1.3 % (0.0-10.0); HEMATOCRIT 37.4 % (37.0-47.0); HEMOGLOBIN 12.4 g/dL (12.0-16.0); LYMPH# 0.86 X1000 (1.2-3.4); LYMPH% 16.1 % (20.5-51.1); MCH 28.8 PG (27-31); MCHC 33.2 g/dL (33-37); MONO# 0.48 X1000 (0.11-0.59); MPV 10.4 FL (7.4-10.4); PLT 238 X1000 (130-400); RDW 13.8 % (11.5-14.5); WBC 5.34 X1000 (4.8-10.8)
[2018-10-27 20:43] LABS: ALB/GLOB RATIO 1.4; ALBUMIN 3.7 g/dL (3.5-5.0); CALCIUM 9.6 mg/dL (8.8-10.2); POTASSIUM 4.5 mmol/L (3.5-5.1); TOTAL BILIRUBIN 0.19 mg/dL (0.20-1.00); TOTAL PROTEIN 6.3 g/dL (6.3-8.3)
[2018-10-27] MEDS ORDERED: ROCEPHIN 1 GM in NS 50 ML IV ONE (21:01)
--- NOTE | 2018-10-27 22:45 | HISTORY AND PHYSICAL ---
PRIMARY CARE PHYSICIAN: Unknown. CHIEF COMPLAINT: Chest pain. HISTORY OF PRESENTING ILLNESS: An 83-year-old female with a history of diabetes mellitus type 2, hypertension, hyperlipidemia, chronic kidney disease and dementia, who was brought to the emergency department due to chest pain. As per ER physician, the patient is a poor historian and most of the history was obtained from family members. At the time of my examination, there was no family members around and patient basically stated she felt well. She could not provide any adequate history and remainder of history is obtained from her previous records. PAST MEDICAL HISTORY: Include diabetes mellitus type 2, hypertension, hyperlipidemia, chronic kidney disease, GERD, dementia, CVA. PAST SURGICAL HISTORY: Cholecystectomy, tonsillectomy, appendectomy, cystoscopy. ALLERGIES: No known drug allergies. CURRENT MEDICATIONS: Include amiodarone 200 mg p.o. q.a.m., Norvasc 10 mg p.o. at bedtime, Lexapro 10 mg p.o. q.a.m., famotidine 20 mg p.o. q.a.m., Lantus 32 units subcu q.a.m., levothyroxine 25 mcg p.o. daily, losartan 25 mg p.o. daily, trazodone 50 mg p.o. at bedtime. SOCIAL HISTORY: No history of smoking, alcohol or illicit drug use. Family history: No history of coronary disease. REVIEW OF SYSTEMS: Unable to obtain due to patient being confused. PHYSICAL EXAMINATION: GENERAL: The patient is resting comfortably. VITAL SIGNS: Temperature 97.9 degrees, pulse 60, respiration 18, blood pressure 121/97. HEENT: Atraumatic, normocephalic. PERRLA. NECK: No masses. CHEST: Clear to auscultation. CARDIOVASCULAR: Regular rate and rhythm. ABDOMEN: Soft. Positive bowel sounds. EXTREMITIES: No edema. NEUROLOGIC: She is awake, alert, oriented x1. : No bladder distention. SKIN: Warm. LABORATORIES AND STUDIES: UA shows nitrite positive and moderate blood. Sodium 142, potassium 4.5, chloride 106, CO2 25, BUN is 32, creatinine is 2.0, glucose is 53. WBCs 5.34, hemoglobin 12.4, hematocrit 37.4, platelets are 238,000. ASSESSMENT: An 83-year-old female with a history of diabetes mellitus type 2, hypertension, hyperlipidemia, chronic kidney disease and dementia was brought to the emergency department due to patient having chest pain. However at time of my examination, patient denied having any symptoms. She seemed to be somewhat confused. It is unclear exactly what her baseline is. The patient will require admission for further management. 1. Chest pain. 2. Suspect a urinary tract infection. 3. Dementia. Unclear what baseline is. 4. Altered mental status. 5. Diabetes mellitus type 2. 6. Hypertension. PLAN: 1. We will admit patient to medical floor with telemetry. 2. Continue with cardiac workup. Check EKG, serial cardiac enzymes. Have patient continue on aspirin. 3. We will consult Cardiology. 4. We will check urine cultures and start patient on IV antibiotics. 5. Continue with neuro checks. 6. We will monitor blood glucose and put patient on sliding scale insulin regimen. 7. We will monitor blood pressure. Resume antihypertensive agent. 8. Put patient on DVT prophylaxis SCDs. 9. We will continue to follow and reassess and make further recommendation based on patient's clinical course. cc: Shade Robertson MD
[2018-10-27] MEDS ORDERED: NS 1,000 ML IV PRN (23:12)
[2018-10-28 05:39] LABS: HEMATOCRIT 37.6 % (37.0-47.0); HEMOGLOBIN 12.2 g/dL (12.0-16.0); WBC 4.46 X1000 (4.8-10.8)
[2018-10-28 05:40] LABS: BASO# 0.03 X1000 (0.0-0.2); BASO% 0.7 % (0.0-0.8); EOS# 0.04 X1000 (0.0-0.7); EOS% 0.9 % (0.0-10.0); LYMPH# 0.63 X1000 (1.2-3.4); LYMPH% 14.1 % (20.5-51.1); MCH 28.4 PG (27-31); MCHC 32.4 g/dL (33-37); MCV 87.4 FL (81-99); MONO# 0.46 X1000 (0.11-0.59); MONO% 10.3 % (1.7-9.3); MPV 10.6 FL (7.4-10.4); PLT 209 X1000 (130-400); RDW 13.7 % (11.5-14.5)
[2018-10-28 06:07] LABS: CALCIUM 9.3 mg/dL (8.8-10.2); CREATININE 1.8 mg/dL (0.5-0.9); POTASSIUM 4.5 mmol/L (3.5-5.1)
[2018-10-28] MEDS ORDERED: DESYREL PO PRN (06:54)
--- NOTE | 2018-10-28 07:27 | PROGRESS NOTE ---
DATE: 10/28/2018 SUBJECTIVE: Ms Gil is an 83-year-old, white female patient, complaining of pain in the left leg and left hip. The pain was moderate in intensity and when physical therapist was there, they could do therapy because of the pain. They called my office. I offered an appointment for today but then because of moderate pain, they brought the patient to the emergency room, evaluated by the ER physician. Patient found to have significant UTI and patient was admitted for further care. The patient is a very vague and poor historian. The patient does have advanced dementia, not able to give any history. No family member is available. No high-grade fever, chills, nausea, vomiting. The patient is laying comfortably in the bed. No typical chest pain or palpitations. Denied any nausea or vomiting. No diarrhea, blood, or mucus in the stool. PAST MEDICAL HISTORY: Diabetes mellitus, paroxysmal atrial fibrillation, advanced dementia, uterine prolapse, osteoarthritis, gastritis, dementia and depression. OBJECTIVE: Vital Signs: Blood pressure 134/56, pulse 59, respiration 18, temperature 97.7 degrees. Skin: Normal turgor. No petechiae. HEENT: Head atraumatic, normocephalic. [place] conjunctivae. Anicteric sclerae. Extraocular muscle movement normal. Fundus cannot be penetrated. Good oral hygiene. No tonsillopharyngeal congestion or exudate. Ears and nose benign. Neck: Supple. No JVD, thyromegaly or lymphadenopathy. Chest: Bilateral good air entry present. Few basal crepitations. Cardiovascular: S1 and S2 heard. Abdomen: Soft, globular. Bowel sounds present. Central nervous system: Alert, awake, able to move all 4 limbs. Uncooperative for detailed exam. LABORATORY DATA: Done today, WBC count 4.46, hemoglobin 12.2, hematocrit 37.6, platelet count 209,000. Her blood sugar was 40. We are holding her Lantus. Electrolytes were otherwise benign, BUN 31, creatinine 1.8. Urinalysis did reveal significant UTI. CONSIDERATION: 1. Urinary tract infection. 2. Leg pain most likely musculoskeletal. 3. Advanced dementia. 4. Paroxysmal atrial fibrillation. 5. Depression. 6. Osteoarthritis. 7. Uterine prolapse. PLAN: IV antibiotics. Hydration. Close observation. Hold her insulin. Monitor Accu-Chek. There is no family member available. Watch patient closely. Resume her home medications. cc: Tan Bryan MD
--- NOTE | 2018-10-28 07:30 | EKG Report ---
Test Performed on : 10/27/2018 7:32:37 PM Test Reason : cp Blood Pressure : / mmHG Vent. Rate : 069 BPM Atrial Rate : 069 BPM P-R Int : 196 ms QRS Dur : 078 ms QT Int : 440 ms P-R-T Axes : 069 016 004 degrees QTc Int : 471 ms Normal sinus rhythm. Nonspecific ST and T wave abnormality Abnormal ECG When compared with ECG of 01-MAY-2018 15:58, Nonspecific T wave abnormality now evident in Inferior leads Nonspecific T wave abnormality no longer evident in Anterior leads Nonspecific T wave abnormality, worse in Lateral leads Unconfirmed Result
[2018-10-28] MEDS: HUMULIN R SUBQ SCH ×5 (07:55→21:37)
[2018-10-28] MEDS: PEPCID PO SCH (08:49)
[2018-10-28] MEDS: MAG-OX PO SCH (08:49)
[2018-10-28] MEDS: COZAAR PO SCH (08:49)
[2018-10-28] MEDS: CORDARONE PO SCH (08:49)
[2018-10-28] MEDS: VITAMIN D PO SCH (08:50)
[2018-10-28] MEDS: LEXAPRO PO SCH (08:50)
[2018-10-28] MEDS: SYNTHROID PO SCH (08:55)
--- NOTE | 2018-10-28 14:59 | CONSULTATION ---
DATE OF CONSULTATION: 10/28/2018 IMPRESSION: 1. Reported chest pain, although patient cannot recall features due to advanced dementia. Family not aware of chest symptoms that brought patient to the hospital. 2. Advanced dementia. 3. Hypertension. 4. Hyperlipidemia. 5. Chronic kidney disease. RECOMMENDATIONS: 1. Follow up cardiac enzymes, but doubt myocardial insult. 2. Conservative cardiovascular suggestion overall. She is a poor candidate for invasive management of any coronary disease or cardiovascular problems that might be discovered. 3. Patient has living will. Suggest code status addressed while she is here in the hospital. 4. We will see further on an as needed basis. HISTORY: This 83-year-old white female with past history of advanced dementia, type 2 diabetes mellitus, hypertension, hyperlipidemia and chronic kidney disease was brought to the emergency room because of reported chest pain. She has been getting home physical therapy which she has not done very well with. She has really failed to progress. This was her last day of home physical therapy and she did not really participate much. The family indicates that the home physical therapy contacted Dr. Bryan and advised that she was not participating and that further home therapy would not be continued. They also had reported that she has had some chest discomfort. Advice was given to bring her to the hospital for evaluation and she was admitted. She really cannot give any significant history due to advanced dementia. She is confused and does not seem to make much sense. PAST MEDICAL HISTORY: 1. Advanced dementia. 2. Type 2 diabetes mellitus. 3. Hypertension. 4. Hyperlipidemia. 5. Chronic kidney disease. 6. Gastroesophageal reflux disease. 7. Previous cerebrovascular accident. PAST SURGICAL HISTORY: Includes cholecystectomy, tonsillectomy, appendectomy and cystoscopy. ALLERGIES: She has no known drug allergies. MEDICATIONS: Prior to admission: As listed. SOCIAL HISTORY: She has managed to stay at home up to this point with aid of supportive family. She does not smoke or use alcohol. FAMILY HISTORY: Negative for premature coronary disease. REVIEW OF SYSTEMS: Not reliably obtainable given patient's confusion. PHYSICAL EXAMINATION: General: Reveals an overweight elderly white female in no distress. Vital Signs: Blood pressure 121/47, heart rate 54, oxygen saturation 91% on room air. HEENT: Extraocular movements intact. Mucous membranes are moist. Neck: Supple, without jugular venous distention. No carotid bruits. Chest: Clear to auscultation. Cardiac: Reveals a regular rate and rhythm without appreciable murmur or gallop. Abdomen: Soft. Bowel sounds are normal. Extremities: Without edema. Neurologic: Reveals her to be awake and responsive. She is obviously confused. She moves all 4 extremities equally well. PERTINENT DATA: Twelve-lead EKG demonstrates normal sinus rhythm and nonspecific T-wave abnormality. LABORATORY DATA: Includes white blood cell count of 4.46, hematocrit 37.6, hemoglobin 12.2, platelet count 209,000. Sodium 142, potassium 4.5 chloride 107, carbon dioxide 25, BUN 31, creatinine 1.8. Initial troponin T less than 0.01. Followup troponin T less 0.01. cc: MD Tan Pierson MD [facility]
[2018-10-28] MEDS: LOVENOX SUBQ SCH (19:34)
[2018-10-28] MEDS: NORVASC PO SCH (21:29)
[2018-10-28] MEDS: LIPITOR PO SCH (21:29)
[2018-10-28] MEDS: ROCEPHIN 1 GM in NS 50 ML IV SCH ×2 (21:29→23:00)
--- NOTE | 2018-10-29 07:15 | PROGRESS NOTE ---
DATE: 10/29/2018 SUBJECTIVE: Ms. iGl is doing fair. No chest pain. No high-grade fever or chills. Oral intake is fair. No nausea or vomiting. OBJECTIVE: Vital Signs: As noted. Yesterday, her blood sugar was low which improved. Neck: Supple. No JVD. Lungs: Bibasilar crepitations. Heart: S1 and S2 heard. Abdomen: Soft, globular. Bowel sounds present. HEALTH AND WELLNESS SALES CONSULTANT: Alert, awake and uncooperative for detailed exam. CONSIDERATION: 1. Patient admitted with leg pain. The patient does have dementia, and found to have a UTI. 2. History of hypertension. Yesterday, her blood sugar was low. There was question about the chest pain. Coffee Taster evaluated patient and recommendation noted. 3. History of paroxysmal atrial fibrillation. PLAN: Plan is to continue current treatment. Physical Therapy evaluation. Urine culture is pending. I am going to repeat blood work tomorrow. cc: Tan Bryan MD
[2018-10-29] MEDS: SYNTHROID PO SCH (07:46)
[2018-10-29] MEDS: HUMULIN R SUBQ SCH ×4 (07:46→23:14)
[2018-10-29] MEDS: VITAMIN D PO SCH (10:10)
[2018-10-29] MEDS: MAG-OX PO SCH (10:10)
[2018-10-29] MEDS: PEPCID PO SCH (10:10)
[2018-10-29] MEDS: COZAAR PO SCH (10:11)
[2018-10-29] MEDS: CORDARONE PO SCH (10:11)
[2018-10-29] MEDS: LEXAPRO PO SCH (10:11)
[2018-10-29] MEDS: LOVENOX SUBQ SCH (18:35)
[2018-10-29] MEDS: ROCEPHIN 1 GM in NS 50 ML IV SCH (22:30)
[2018-10-30] MEDS: NORVASC PO SCH ×2 (04:56→20:49)
[2018-10-30] MEDS: ROCEPHIN 1 GM in NS 50 ML IV SCH ×2 (04:56→20:40)
[2018-10-30] MEDS: LIPITOR PO SCH ×2 (04:56→20:49)
[2018-10-30 06:57] LABS: HEMATOCRIT 33.7 % (37.0-47.0); HEMOGLOBIN 10.7 g/dL (12.0-16.0); MCH 28.1 PG (27-31); MCHC 31.8 g/dL (33-37); MCV 88.5 FL (81-99); MPV 10.7 FL (7.4-10.4); PLT 192 X1000 (130-400); RBC 3.81 XMIL (4.2-5.4); RDW 13.8 % (11.5-14.5); WBC 4.05 X1000 (4.8-10.8)
[2018-10-30 06:58] LABS: BASO# 0.02 X1000 (0.0-0.2); BASO% 0.5 % (0.0-0.8); EOS# 0.16 X1000 (0.0-0.7); LYMPH# 0.45 X1000 (1.2-3.4); LYMPH% 11.1 % (20.5-51.1); MONO# 0.53 X1000 (0.11-0.59); MONO% 13.1 % (1.7-9.3); NEUT# 2.89 X1000 (1.4-6.5); NEUT% 71.3 % (42.2-75.2)
--- NOTE | 2018-10-30 07:06 | PROGRESS NOTE ---
DATE: 10/30/2018 SUBJECTIVE: Ms. Gil admitted with altered mental status, and found to have UTI. The patient is doing fair. No high-grade fever or chills. The patient does have advanced dementia. History part limited. Oral intake variable. No diarrhea, blood or mucus in the stool. OBJECTIVE: Her vital signs as noted.Neck: Supple. No JVD. Lungs: Bibasilar crepitations. Heart: S1 and S2 heard. Abdomen: Soft, globular. Bowel sounds present. ESL TUTOR: Alert and awake. Able to move all 4 limbs. LABORATORY DATA: Ordered for today, results pending. Urine culture result is also pending. CONSIDERATION: 1. UTI. 2. Uncontrolled diabetes mellitus. The patient is on sliding scale insulin. I am holding her Lantus. 3. History of hypertension. 4. Gastritis. 5. Paroxysmal atrial fibrillation. PLAN: Labs and medication noted. We will follow today's labs and urine culture result. Environmental Protection Inspector recommendation noted. Continue rest of the treatment and close observation. cc: Tan Bryan MD
[2018-10-30 07:10] LABS: CALCIUM 9.3 mg/dL (8.8-10.2); CREATININE 1.9 mg/dL (0.5-0.9); POTASSIUM 4.2 mmol/L (3.5-5.1); TOTAL BILIRUBIN 0.27 mg/dL (0.20-1.00); TOTAL PROTEIN 5.9 g/dL (6.3-8.3)
[2018-10-30 07:11] LABS: ALBUMIN 2.9 g/dL (3.5-5.0); MAGNESIUM 1.8 mg/dL (1.5-2.7)
[2018-10-30] MEDS: SYNTHROID PO SCH (08:19)
[2018-10-30] MEDS: HUMULIN R SUBQ SCH ×4 (08:19→21:27)
[2018-10-30] MEDS: VITAMIN D PO SCH (09:06)
[2018-10-30] MEDS: COZAAR PO SCH (09:07)
[2018-10-30] MEDS: CORDARONE PO SCH (09:07)
[2018-10-30] MEDS: MAG-OX PO SCH (09:07)
[2018-10-30] MEDS: LEXAPRO PO SCH (09:07)
[2018-10-30] MEDS: PEPCID PO SCH (09:07)
--- NOTE | 2018-10-30 10:18 | Diag Imaging Result Doc PS360 ---
EXAM: CHEST-2 VIEWS HISTORY: hypoxia TECHNIQUE: Chest two views COMPARISON: 05/01/2018 FINDINGS: Poor inspiratory effort. Heart is mildly prominent. Mild central vascular distention. No effusions. No consolidation. Calcified left hilar nodes with left lower lobe granuloma. IMPRESSION: Mildly prominent heart with mild vascular distention. Electronically signed by Don Emanuel 10/30/2018 10:16 AM
[2018-10-30] MEDS: LOVENOX SUBQ SCH ×2 (17:34→19:48)
[2018-10-31] MEDS: HUMULIN R SUBQ SCH ×4 (06:28→20:16)
[2018-10-31] MEDS ORDERED: MILK OF MAGNESIA PO ONE (06:40)
--- NOTE | 2018-10-31 07:03 | PROGRESS NOTE ---
DATE: 10/31/2018 SUBJECTIVE: Ms. Gil is doing well. No unusual agitation. Patient is laying in the bed. Oral intake seems to be fair. No nausea or vomiting. OBJECTIVE: Her vital signs are noted.Neck: Supple. No JVD. Lungs: Bilateral good air entry present. CVS: S1 and S2 heard. Abdomen: Soft and globular. Bowel sounds present. DOCUMENT CLERK: Alert and awake. Able to move all 4 limbs in response to oral commands though patient is uncooperative for neurologic examination. PROBLEMS: 1. Urinary tract infection. 2. Uncontrolled diabetes mellitus. 3. Paroxysmal atrial fibrillation. 4. Advanced dementia. 5. Osteoarthritis. 6. Urine culture result is still pending. 7. We will continue current treatment. 8. Close observation. LABORATORY DATA: Labs done yesterday noted. BUN 31, creatinine 1.9. The patient does have chronic kidney disease which is stable. Hemoglobin 10.7, hematocrit 33.7, and platelet count 192,000. PLAN: I will follow urine culture results. Continue rest of the treatment. Close observation. Plan is to discharge patient home soon once I get culture results. cc: Tan Bryan MD
[2018-10-31] MEDS: SYNTHROID PO SCH (10:28)
[2018-10-31] MEDS: MAG-OX PO SCH (11:09)
[2018-10-31] MEDS: COZAAR PO SCH (11:09)
[2018-10-31] MEDS: PEPCID PO SCH (11:09)
[2018-10-31] MEDS: LEXAPRO PO SCH (11:09)
[2018-10-31] MEDS: VITAMIN D PO SCH (11:10)
[2018-10-31] MEDS: CORDARONE PO SCH (11:10)
[2018-10-31] MEDS: LANTUS INSULIN SUBQ SCH (11:22)
[2018-10-31] MEDS: LOVENOX SUBQ SCH (17:45)
[2018-10-31] MEDS: NORVASC PO SCH (20:17)
[2018-10-31] MEDS: ROCEPHIN 1 GM in NS 50 ML IV SCH (20:17)
[2018-10-31] MEDS: LIPITOR PO SCH (20:17)
[2018-11-01] MEDS: SYNTHROID PO SCH (05:11)
[2018-11-01] MEDS: HUMULIN R SUBQ SCH (07:02)
[2018-11-01 08:11] VITALS: BP 109/50
[2018-11-01] MEDS ORDERED: CALMOSEPTINE OINTMENT TOP PRN (09:04)
[2018-11-01] MEDS: LANTUS INSULIN SUBQ SCH (10:08)
[2018-11-01] MEDS: CORDARONE PO SCH (10:09)
[2018-11-01] MEDS: MAG-OX PO SCH (10:10)
[2018-11-01] MEDS: COZAAR PO SCH (10:10)
[2018-11-01] MEDS: LEXAPRO PO SCH (10:10)
[2018-11-01] MEDS: PEPCID PO SCH (10:10)
[2018-11-01] MEDS: VITAMIN D PO SCH (10:10)
--- NOTE | 2018-11-01 16:25 | DISCHARGE SUMMARY ---
ADMISSION DATE: 10/28/2018 DISCHARGE DATE: 11/01/2018 FINAL DISCHARGE DIAGNOSES: 1. Urinary tract infection. 2. Delirium. 3. Leg pain. 4. Uterine prolapse. 5. Hypertension. 6. Advanced dementia. 7. Gastritis and reflux disease. 8. Hyperlipidemia. 9. Osteoarthritis. 10. Diabetes mellitus. 11. Vitamin D deficiency. 12. Paroxysmal atrial fibrillation. Ms Gil is an 83-year-old white female patient. Her teaching specialists called me because patient had leg pain. When she came to the emergency room there was history of chest pain. The patient had very advanced dementia. History part was limited. The patient was admitted for further care. In the hospitalization patient found to have significant UTI. The patient was treated with IV Rocephin. Urine culture grew strep agalactiae which was sensitive to almost all antibiotics. Cardiology consult obtained and recommendation noted. The patient was treated symptomatically. Her clinical condition stabilized and improved. The patient received maximum benefit of hospitalization. I am planning to discharge her home today. OBJECTIVE: Vital Signs: Vital signs noted which were stable. Blood pressure 106/53, pulse 63, respirations 16, temperature 97.7 degrees, O2 saturation was 96%. Neck: Is supple. No JVD. Lungs: Bibasilar crepitations. Heart: S1 and S2 heard. Abdomen: Soft, globular. Bowel sounds present. PACKAGING TECHNICIAN: Alert, awake. Very advanced dementia. Uncooperative for detailed exam. The patient has significant arthritis both the knees. Blood work done on October 30, hemoglobin 10.7, hematocrit 33.7, WBC count 4.05, platelet count was 192,000. BUN 31, creatinine 1.7 suggestive of chronic kidney disease. ProBNP 314. Cardiac isoenzymes were negative. Her urine showed [id number] WBC, RBC. This was cath specimen. Urine culture results noted. The patient had x-ray of the lumbar spine which revealed spondylolisthesis at L4-L5, generalized degenerative disk disease. X-ray of the hip and pelvis: No evidence of acute bony disease. Femur x-ray: No acute bony abnormality. It did show atherosclerosis. Overall patient received maximum benefit of hospitalization. We will discharge patient home today. Encourage fall precaution. We will resume home health. Continue Macrobid for 3 more days. cc: Tan Bryan MD
== END 2018-11-01 13:20 | disposition home health service (06) | DRG 690 ==
LOC: SUPCPDRO → ED 15:26 → 4N 15:26 → SUATTDRO 21:59
PROVIDERS: ADMIT Internal Medicine; ATTEND Internal Medicine
CPT/HCPCS: 51701; 71020; 71046; 72110; 72170; 73552; 80048; 80053; 81001; 82140; 82948; 83735; 83880; 84484; 85025; 87077; 87088; 87186; 93005; 96365; 97110; 97162; 99285; A9270; J0696; J1650; J1815; J7030; P9612; XXXXX